=== PATIENT | female | born 2000 | race Caucasian/White ===

== ENCOUNTER 2023-12-15 20:16 | Emergency (ER) | payer MEDICAID, SELFPAY ==
--- NOTE | ~2023-12-15 | US_ITS ---
Pelvic ultrasound. Clinical History: Pelvic pain, bleeding, first trimester Technique: Realtime transabdominal scanning of the pelvis was performed. Color flow Doppler and Doppl er spectral analysis were performed. Findings: The uterus is anteverted. The endometrial stripe has a thickness of 15 mm. No intrauterine gestational sac is identified. The right ovary measures 2.9 x 2.0 x 2.4 cm. No significant right ovarian or adnexal mass is seen. The left ovary measures 2.5 x 1.9 x 2.2 cm. No significant left ovarian or adnexal mass is seen. Vascular flow present in both ovaries. There is no evidence of free fluid in the cul de sac. Impression: No intrauterine gestational sac. Prominent endometrial stripe could reflect sequelae of spontaneous a bortion. No definite evidence for retained product of conception. Reviewed, dictated and finalized at [facility]. Impression: No intrauterine gestational sac. Prominent endometrial stripe could reflect seq uelae of spontaneous . No definite evidence for retained product of con ception.
[2023-12-15 20:20] VITALS: BP 115/64; PULSE 75; RESP 18; TEMP 36.6; O2SAT 97
--- NOTE | 2023-12-16 02:40 | ED.FEMALEGU ---
HPI - Female Genitourinary General Chief complaint: Vaginal Bleeding Stated complaint: 9 weeks preg, Vaginal bleeding Time Seen by Provider: 12/16/23 02:25 History of Present Illness HPI Narrative: This is a 23-year-old female who presents to the emergency department a chief complaint of vaginal spotting and vaginal bleeding. She has been spotting for several days and then passing some blood clots today prompting her to seek evaluation. She is approximately 9 weeks by last menstrual cycle. She states she had a positive test at home but has not established with an OBGYN here as she just moved to the area. She has an appointment in 1 week time. Not sure who her OBGYN name is. She doses of pelvic cramping sensation associated with the bleeding. I think she is having a miscarriage. Denies any fever, chills, nausea, vomiting, chest pain, shortness a breath. No complications were prior . Has a [id number] child at home, healthy. Denies any trauma or other illnesses, recent injuries. Related Data Allergies Allergy/AdvReac Type Severity Reaction Status Date / Time No Known Allergies Allergy Verified 12/16/23 02:55 Review of Systems Review of Systems: As reviewed above Exam Narrative: GENERAL: [Well-appearing, well-nourished, and in no acute distress.] HEAD: [Normocephalic, atraumatic.] EYES: [PERRLA and EOMI.] ENT: Nares clear, no rhinorrhea or epistaxis. Mucous membranes moist. NECK: Supple. CHEST: [Clear to auscultation. No respiratory distress.] HEART: [Regular rate and rhythm]. No murmur heard. [Normal peripheral pulses.] ABDOMEN: [Soft, nondistended], tender to palpation bilateral lower quadrants, non peritoneal, [No rigidity or guarding] EXTREMITIES: Normal range of motion. [No edema.] SKIN: Warm, dry, no rash. NEURO: [No focal deficits]. Alert and oriented [x3.] PSYCH: [Normal mood and affect.] Course Vital Signs Vital signs: Vital Signs Temperature 36.6 C 12/15/23 20:20 Pulse Rate 75 12/15/23 20:20 Respiratory Rate 18 12/15/23 20:20 Blood Pressure 115/64 12/15/23 20:20 Pulse Oximetry 97 12/15/23 20:20 Oxygen Delivery Room Air 12/15/23 20:20 Temperature 36.6 C 12/15/23 20:20 Pulse Rate 75 12/16/23 03:40 Respiratory Rate 18 12/16/23 03:40 Blood Pressure 105/67 12/16/23 03:40 Pulse Oximetry 99 12/16/23 03:40 Oxygen Delivery Room Air 12/15/23 20:20 MDM - Female Genitourinary MDM Narrative Medical decision making narrative: 23-year-old female with vaginal bleeding in the setting of possible . She has a history of uncomplicated rates before but no abdominal surgical history. Normal reassuring vital signs. Examination shows some tenderness in bilateral abdominal quadrants but no signs of rebound guarding or peritonitis. She has been passing some small blood clots for last few hours and had spotting over last few days. Concerned she is having a miscarriage. . Differential diagnosis at this time includes miscarriage, normal vaginal bleeding in , ectopic , less likely ovarian pathology such as ovarian cyst or hemorrhagic cyst. Workup was ordered including CBC, CMP, type and screen, ultrasound, beta hCG. She is given Tylenol for analgesia. Prior to obtaining her ultrasound I was called to patient's bedside as she had passed complete material encased in a embryonic sac. He has identifiable tissue was seen and appears complete without any rupture the sac or likely retained membranes. Pelvic ultrasound was deferred by patient by transabdominal ultrasound showed no identifiable retained gestational or yolk sac consistent with a complete miscarriage given her passing of the material here at bedside. Embryo placed into a specimen collection. Laboratory studies show a stable hemoglobin of 13.6, no leukocytosis. Electrolyte panel within normal limits, normal creatinine. Normal hepatic function pa
[2023-12-16 02:55] LABS: Basophils Percent Auto 0.5 % (0.2-1.2); Eosinophils Absolute Auto 0.2 K/mm3 (0-0.3); Eosinophils Percent Auto 1.9 % (0-4.4); Hematocrit 40.3 % (37.0-47.0); Hemoglobin 13.6 g/dL (12.0-15.0); Immature Granulocyte Absolute 0.01 K/mm3 (0.00-0.031); Immature Granulocyte Percent A 0.1 % (0-0.5); Lymphocytes Absolute Auto 2.07 K/mm3 (0.9-3.2); Mean Corpuscular HGB Conc 33.7 g/dl (32-36); Mean Corpuscular Hemoglobin 30.1 pg (26-34); Mean Corpuscular Volume 89.2 fl (80-100); Mean Platelet Volume 9.3 fl (7.4-10.4); Monocytes Absolute Auto 0.5 K/mm3 (0.1-0.6); Monocytes Percent Auto 5.6 % (2.6-8.5); Neutrophils Absolute Auto 5.9 K/mm3 (1.3-6.7); Neutrophils Percent Auto 67.9 % (45.5-73.1); Platelet Count Result 245 k/mm3 (150-375); Red Blood Count 4.52 M/mm3 (4.2-5.4); Red Cell Distribution Width 12.8 % (11.5-14.5); White Blood Count 8.6 K/mm3 (4.5-10.0)
[2023-12-16 03:08] LABS: INR 1.1; Prothrombin Time 14.2 Seconds (11.1-14.7)
[2023-12-16 03:08] LABS: Alanine Aminotransferase 14 U/L (6-35); Albumin Level 4.6 g/dL (3.5-5.1); Alkaline Phosphatase 68 U/L (38-126); Anion Gap 12 mmol/L (4-12); Aspartate Amino Transferase 20 U/L (14-36); Bilirubin,Total 0.4 mg/dL (0.2-1.3); Blood Urea Nitrogen 11 mg/dL (7-17); Calcium 9.3 mg/dL (8.4-10.2); Carbon Dioxide 24 mmol/L (22-30); Chloride 102 mmol/L (98-107); Estimated CRCL calculation 114 ml/min; Estimated Glomerular Filt Rate > 60; Glucose 93 mg/dL (65-110); Potassium 3.6 mmol/L (3.4-5.0); Sodium 138 mmol/L (137-145)
[2023-12-16 03:09] LABS: Partial Thromboplastin Time 29.9 Seconds (22.3-36.8)
--- NOTE | 2023-12-16 03:15 | PC.NURSE ---
Pt stated I do not want a vaginal ultrasound nor do I want a pelvic exam.
--- NOTE | 2023-12-16 03:17 | PC.NURSE ---
Pt significant other called for help to room 9. Upon arrival, pt stated I think I just passed my child or a very large clot. simone Araiza, placed clot in urine cup to show Dr. Crow. EDP notified.
[2023-12-16] MEDS: ACETAMINOPHEN 500 MG TABLET 1000 MG PO (03:37)
[2023-12-16 03:40] VITALS: BP 105/67; PULSE 75; RESP 18; O2SAT 99
--- NOTE | 2023-12-16 04:30 | PC.NURSE ---
Patient left prior to receiving dc paperwork or share paperwork. Product of conception sent to lab per JANET Crow.
--- NOTE | 2023-12-16 04:41 | PC.NURSE ---
Pt left prior to receiving discharge papers. IV was removed beforehand by DEBORAH Bullard
== END 2023-12-16 04:30 | disposition home or self-care (01) ==
PROVIDERS: Emergency Medicine; Emergency Provider Student in an Organized Health Care Education/Training Program
DX: O03.9 Complete or unspecified spontaneous abortion without complication (principal)
CPT/HCPCS: 36415; 76856; 80053; 84702; 85025; 85461; 85610; 85730; 86850; 86900; 86901; 88305; 99284; A9270

== ENCOUNTER 2024-09-16 11:43 | Outpatient (CLI) | payer OTHER, SELFPAY ==
--- NOTE | ~2024-09-16 | XR_ITS ---
EXAMINATION: SACRUM/COCCYX DATE: 09/16/2024 12:31 INDICATION: Trauma to the tailbone. Pain. TECHNIQUE: Three views sacrum/coccyx FINDINGS: No prior studies for comparison. There is no displaced fracture of the sacrum. The coccyx demonstrates overall normal morphology with out acute angulation. IMPRESSION: 1. No acute displaced osseous abnormality of the sacrum. Suspicion for occult or nondisplaced sacral fracture can either be evaluated with CT or MRI. 2. Grossly normal morphology to the coccyx without acute angulation. However, due to the wide range of normal variation of the coccyx, acute injury would be best evaluated by clinical examination and patient's symptoms. Reviewed, dictated and finalized at location B.
--- OUTSIDE RECORDS SUMMARY | 2024-09-16 11:53 | XMS_ITS | Patient Health Record ---
Author Organization [facility] Address [address] [place], [place] [id number] Care Team Providers Care Carpenter/Labor Name Role Phone Milan Aguila [phone] Reason For Referral No Information Medications Medication SIG (Take, Route, Fr equency, Duration) Notes Start Date End Date Status Control Active Ketorolac Tromethamine Active Social History Tobacco Use: Social History Observation Description Date Details (start date - stop date) Never Smoker NA - NA Tobacco Use/Smoking Question Answer Notes Are you a nonsmoker Alcohol Screen (Audit-C) Question Answer Notes Did you have a drink containing alcohol in the p ast year? No Points 0 Interpretation Negative Problems Problem Type SNOMED Code ICD Code Onset Dates Problem Status W/U Status Risk Notes Problem Laceration of head without foreign body (424956039) Laceration without foreign body of other part of head, initial encounter (S01.81XA) Active confirmed Plan Of Treatment No Information Medical (General) History Surgical History Surgery Date(Month/Year) forehead laceration repair (10) 7
--- OUTSIDE RECORDS SUMMARY | 2024-09-16 11:53 | XMS_ITS | Data Portability ---
Author Organization [facility] Address [address] [place] [address] Assessment No assessment recorded. Plan of Treatment Reminders Order Date Submit Date Provider Last Modified By Organization Details Last Modified Time Details Appointments None recorded. Lab beta-HCG, quantitativ e, serum or plasma 2023 [facility], [address] [place], [address], 4 15:55:38 abo group + rh type, blood 2023 [facility], [address] [place], [address], 4 15:55:39 Referral None recorded. Procedures None recorded. Surgeries None recorded. Imaging US, transvagina l 2023 [facility] Not available 16:59:42 Medication Orders NuvaRing 0.12 mg-0.015 mg/24 hr vaginal 2023 [facility] [address] , [place], [address], 4 12:46:00 clindamycin 1.2 %-benzoyl peroxide 2.5 % topical gel with pump 2023 [facility] [address] , [place], [address], 4 12:45:59 Patient TargetsNo targets recorded. Patient InstructionsNo instructions recorded. Reason for Referral None Reported. Results Created Date Observation Date Name Description Value Unit Range Abnormal Flag Note LastModifiedBy Organization Detail LastModifiedTime 12/24/19 24 12/25/2023 HCG, TOTAL , QN HCG, total, qn 175 mIU/m L high Refer ence Range Nonpr egnan t or preme nopau laurel <5 Postm enopa usal <10 Value s from diffe rent assay metho ds may vary. The use of this assay to monit or or to diagn ose patie nts with cance r or any condi tion unrel ated to pregn nyasia has not been clear ed or appro rome by the FDA or the [facility] actur er of the assay . Not Available Schedule [facility] [address], [address], 12/25/2023 15:55:38 12/24/19 24 12/25/2023 ABO GROUP AND RH TYPE ABO group A Not Available Schedule [facility] [address], [address], 12/25/2023 15:55:39 12/24/19 24 12/25/2023 ABO GROUP AND RH TYPE Rh type RH(D) POSITI VE For addit ional infor lane webb e refer to http: //[facility] matt.Que stDia gnost ics.c om/fa q/FAQ 111 (This link is being provi ded for infor raghu frederick/ educrobbie messina l purpo ses only. ) Not Available Schedule [facility] [address], [address], 12/25/2023 15:55:39 12/31/19 24 01/01/2024 HCG, TOTAL , QUANT HCG, total, quant 12 mIU/m L <5 high Refer ence Range s are for femal es aged 18 years - Adult Nonpr egnan t or preme nopau laurel <5 Postm enopa usal <10 Value s from diffe rent assay metho ds may vary. The use of this assay to monit or or to diagn ose patie nts with cance r or any other condi tion unrel ated to pregn nyasia has not been valid ated by the [facility] actur er of this assay . Not Available [place] [facility] [address] [facility], [place], [address], 01/01/2024 11:45:22 12/23/19 24 12/23/2023 US, trans vagin al No observ ation record ed. [email or web address], [place], [address], 12/23/2023 20:09:47 Result Notes None recorded. Procedures Surgical History Date Name Laterality Status Provider Name and Address Organization Details Recorded Time 01/18/2023 Date of Last Pap Smear completed Daylin Newman RPM [employer] 12/23/2023 11:21:37 Imaging Results None recorded. Procedure Notes None recorded. Medical Equipment None Reported. Allergies No known drug allergies Medications Name Sig Start Date Stop Date Status Note LastModified by Organization Details LastModified Time clindamycin 1 % topical gel APPLY A THIN LAYER TO THE AFFECTED AREA TOPICALLY 2 TIMES PER DAY active Not Available Not Available No t Available hydroxyzine HCl 25 mg tablet TAKE 1 TABLET BY MOUTH THREE TIMES DAILY active Not Available Not Available No t Available NuvaRing 0.12 mg-0.015 mg/24 hr vaginal Insert 1 vaginal ring every month by vaginal route for 21 days. 2023 active Not Available Not Available Not Avai lable clindamycin 1.2 %-benzoyl peroxide 2.5 % topical gel with pump APPLY A PEA-SIZED AMOUNT TOPICALLY ONCE DAILY TO COVER AREAS OF FACE WITH THIN LAYER active Not Available Not Available N ot Available Vitals Date Recorded Body height Body mass index (BMI) Body weight Systolic blood pressure Diastolic blood pressure Provider Name and Address Organization Details Last Updated DateTime 12/23/2023 157.48 cm 23.3 kg/m2 36017.67 g 110 mm[Hg] 66 mm[Hg] Daylin Newman [employer] 11:19:43 Social History Question Answer Notes LastModified by Organizat ion Details LastModified Time Tobacco Smoking Status Never Smoker Daylin rudd [employer] 12/23/2023 11:21:37 If You Are , What Was Your Level Of Alcohol Consumption Prior To ? Occasional [email or web address] Information not available 12/23/2023 How Many Years Have You Consumed Alcohol? 3 [email or web address] Information not available 12/23/2023 Are You Blind Or Do You Have Difficulty Seeing? No Information not available 12/23/2023 Are You Deaf Or Do You Have Serious Difficulty Hearing? No [email or web address] Information not available 12/23/2023 What Type Of Diet Are You Following? REGULAR [email or web address] Information not available 12/23/2023 Which Illicit Or Recreational Drugs Have You Used? Marijuana [email or web address] Information not available 12/23/2023 How Many Children Do You Have? 1 [email or web address] Information not available 12/23/2023 What Is Your Relationship Status? [email or web address] Information not available 12/23/2023 Are You Sexually Active? Yes [email or web address] Information not available 12/23/2023 Sex: Unknown Functional Status Question Answer Note LastModified by Organizat ion Details LastModified Time Do you use any illicit or recreational drugs? Yes [email or web address] Information not available 12/23/2023 What is your level of alcohol consumption? Occasional [email or web address] Information not available 12/23/2023 Are you currently employed? No Information not available 12/23/2023 What is your exercise level? Occasional [email or web address] Information not available 12/23/2023 Mental Status None recorded. Family History Relationship Description Onset Age of this Age Resolved Age Notes LastModified by Organization Details LastModified Time Mother Irritable bowel syndrome [email or web address] Not available 12/22 11:21:36 Mother Endometriosi s (clinical) [email or web address] Not available 11:21:36 Mother Malignant tumor of breast [email or web address] Not available 12/22 11:21:36 Mother Malignant neoplastic disease [email or web address] Not available 12/22 11:21:36 Mother Hypertensive disorder [email or web address] Not available 12/22 11:21:36 Mother Uterine leiomyoma Not available 12/22 11:21:36 Maternal Grandmother Diabetes mellitus [email or web address] Not available 12/22 11:21:36 Father Irritable bowel syndrome [email or web address] Not available 12/22 11:21:36 Father Depressive disorder [email or web address] Not available 12/22 11:21:36 Father Gastric ulcer [email or web address] Not available 12/22 11:21:36 Medical History Condition Response Headaches/migraines Y Depression Y Panic Attacks Y Gynecological History Statement/Question Response Flow Moderate Date of LMP 10/05/2023 Frequency of Cycle (Q days) 31 Date of Last Pap Smear 01/18/2023 Duration of Flow (days) 4-5 Current Control Method None Age at Menarche 10 Obstetrics History GPAL:G 2 P 1 0 0 1 Type Value Full Term 1 Spontaneous 0 Living 1 Total 2 Past Encounters Encounter ID Performer Location Encounter Start Date Encounter Closed Date Diagnosis/Indication Diagnosis SNOMED-CT Code Diagnosis ICD10 Code Diagnosis Note [id number] Yamile Miles CNM [facility] [address] [place] [address] 12/23/2023 11:08:55 12/23/2023 13:36:03 Complete miscarriage [id number] O03.9 Pt was seen at [place] [facility] last week for complete miscarriag e. She states that tissue appeared complete and she is no longer bleeding. Will check US to assure no retained products and follow quants. Pt coping ok but would like to have referral to mental health counselor since she is struggelin g with emotions at the moment. Will send referralI spent 30 minutes with the patient, greater than 50% of the time was spent face to face in discussion with the patient the remainder of the time was spent in chart prep and data review. Mental health problem 41 [id number] F48.9 Prescripti on of contraception [id number] Z30.015 COUNSELING was provided today regarding the following: - CHC use was discussed with the patient in detail including starting CHC risks, benefits, side effects, and ACHES. - Backup contracept ion x 2 weeks after start - Condoms should be used for STI prevention . 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 .0 Health Concerns Section Related Observation LastModified by Organization Detai ls LastModified Time None Recorded Concern Status LastModified by Organization Details LastModified Time None Recorded Advance Directives Directive None Recorded Payers Insurance Date Sequence Insurance Name Policy Number Policy Ang Covered Member ID Ang Member ID Guarantor Name 12/24/2023 1 [place] [employer] [facility] [employer] Yamilet Chacon [id number] Yamilet Chacon Notes Date Note Type Note Provider Name and Address Organization Details Recorded Time 12/23/2023 text/html Yamilet Hicks y/o new patient here with misscarriage, seen at [place] [facility] on 12/15/2023, LMP 10/05/2023, Yamile Miles, CN [address] [place], [address], [facility] 12/23/2023 13:35:57 OBGyn Episode Ob Episode Information Episode Created Date Number of Fetuses Patient Bloodtype Patient rh Status Prepregnancy Weight lbs Domestic Partner Domestic Partner Phone Father Name Commercial Real Estate Associate Status 12/23/19 24 1 CLOSED Fetus Data First Name Last Name Admitted to NICU Weight (g) Sex Living Outcome Pediatric Complications Fetus ID Race Codes Race Delivery Type 3061.74 6 M Full Term [id number] Dilshad Calculation Initial Dilshad Date Initial Exam Date Initial Exam Provider Initial Ultrasound Date Last Menstrual Period Date Ultra Sound Weeks Gestation 0 Eighteen To Twenty Week Dilshad Update Ultra Sound Date Fundal Height At Umbil Quickening Date Ultra Sound Latest Weeks Gestation Final Dilshad Confirmed By Final Dilshad Confirmed Date Final Dilshad Date Ultra Sound Latest Days Gestation 0 0 Menstrual History Last Menstrual Date Menses Monthly On Bcp Conception Prior Menses Frequency Hcg Plus Date Menarche Onset Age Delivery Information Delivery Date Delivery Type Labor Anesthesia Weeks Gestation Incision Type Labor Labor Length Hrs Delivered By Post Complications Tubal Sterilization Discharge Date Comments 3 38 Discharge Information Feeding Method Contraceptive Method Maternal HG B and HCT Levels
--- OUTSIDE RECORDS SUMMARY | 2024-09-16 11:54 | XMS_ITS | Data Portability ---
Author Organization [facility] [employer]so [employer], [id number](CLOSED) Address [address] [place] [address] Care Team Providers Care Licensed Midwife Name Role Phone ARMIN BENZNam Primary Care Provider Assessment No assessment recorded. Plan of Treatment Reminders Order Date Submit Date Provider Last Modified By Organization Details Last Modified Time Details Appointments None recorded. Lab urinalysis, dipstick 2018 019 In-House Results, For Internal Use Only, Do Not Delete/merge, [id number] 9 15:47:43 culture, urine 2018 019 [facility], [address] [place], [address], 9 05:31:24 urinalysis, dipstick 2017 018 In-House Results, For Internal Use Only, Do Not Delete/merge, [id number] 8 10:54:25 test, urine 2017 018 In-House Results, For Internal Use Only, Do Not Delete/merge, [id number] 8 10:54:25 urinalysis, dipstick 2016 017 gramie In-House Results, For Internal Use Only, Do Not Delete/merge, [id number] 7 11:04:31 CBC w/ auto diff [address] [facility], [address], [place], [address], 7 08:22:49 anti-will julisa hormone (amh), serum [address] [facility], [address], [place], [address], 7 08:22:49 erythrocyte sedimentati on rate by westergren method [address] [facility], [address], [place], [address], 7 08:22:49 Referral None recorded. Procedures None recorded. Surgeries None recorded. Imaging US, breast, unilateral - special attn to 9-12:00 L breast 2018 019 [facility], [address], [place], [address], 9 05:03:28 Medication Orders phenazopyri dine 200 mg tablet 2018 019 [id number] [id number], [address], [address], 9 10:21:21 medroxyprog esterone 150 mg/mL intramuscul ar syringe 2017 018 [id number] [place], [address], [place], [address], 8 16:52:40 Microgestin 1.5/30 (21) 1.5 mg-30 mcg tablet 2017 018 [id number], [address] [place] [address], [address], 8 10:53:55 NuvaRing 0.12 mg-0.015 mg/24 hr vaginal 2016 017 [id number] [id number], [address] , [place], [address], 9 10:30:49 Patient TargetsNo targets recorded. Patient Instructions Encounter Date Encounter Id Patient Instructions Last Modified By Organization Details Last Modified Time 02/13/2017 [id number] Discussed option s and will try to go on NuvaRing. Will check AMH. janna Not available 02/15/2017 19:22:22 She gas a strong family hx of endometriosis. We discussed emperic treatment with continuos contraceptives. We discussed other medical treatments as well. If no relief will consider RA laparoscpy with excision of Endometriosis. janna Not available 02/15/2017 19:23:37 06/11/2017 [id number] Change ocp with next pill pack. Suspect endometriosis - if sx do not improve or get worse she is to notify the office for further eval. She verblaizes understanding. F/U 3 months or sooner if needed Not available 06/19/2017 18:09:01 02/16/2018 [id number] learning about control: the shot Not available 02/16/2018 11:00:50 endometriosis: care instructions Not available 02/16/2018 11:00:50 Change from ocp to depo as directed- depo calender provided with instructions for use F/U if sx do not improve for further eval Not available 02/16/2018 11:00:12 06/04/2018 [id number] Send urine for C &S Start pyridum for painful urination - continue antibiotics If continued BTB can take depo early if needed F/U if continues Not available 06/13/2018 22:14:40 09/15/2018 [id number] Reassurance offerred Request breast u/s of left breast due to family hx and concerns Not available 09/15/2018 10:59:28 Reason for Referral None Reported. Results Created Date Observation Date Name Description Value Unit Range Abnormal Flag Note LastModifiedBy Organization Detail LastModifiedTime 02/14/20 17 02/13/2017 urina lysis , dipst ick Unknown Analyte Negati ve Not Available In-House Results For Internal Use Only, Do Not Delete/merge, 02/13/2017 10:01:35 02/14/20 17 02/13/2017 urina lysis , dipst ick Unknown Analyte Negati ve Not Available In-House Results For Internal Use Only, Do Not Delete/merge, 02/13/2017 10:01:35 02/14/20 17 02/13/2017 urina lysis , dipst ick Unknown Analyte Trace Not Available In-Nitza se Results For Internal Use Only, Do Not Delete/merge, 02/13/2017 10:01:35 02/14/20 17 02/13/2017 urina lysis , dipst ick Unknown Analyte 30 Not Available In-Nitza se Results For Internal Use Only, Do Not Delete/merge, 02/13/2017 10:01:35 02/14/20 17 02/13/2017 urina lysis , dipst ick Unknown Analyte negati ve Not Available In-House Results For Internal Use Only, Do Not Delete/merge, 02/13/2017 10:01:35 02/14/20 17 02/13/2017 urina lysis , dipst ick Unknown Analyte Small Not Available In-Nitza se Results For Internal Use Only, Do Not Delete/merge, 02/13/2017 10:01:35 02/17/20 18 02/16/2018 pregn nyasia test, urine Unknown Analyte negati ve Not Available In-House Results For Internal Use Only, Do Not Delete/merge, 02/16/2018 10:43:37 02/17/20 18 02/16/2018 urina lysis , dipst ick Unknown Analyte Negati ve Not Available In-House Results For Internal Use Only, Do Not Delete/merge, 02/16/2018 10:10:23 02/17/20 18 02/16/2018 urina lysis , dipst ick Unknown Analyte Negati ve Not Available In-House Results For Internal Use Only, Do Not Delete/merge, 02/16/2018 10:10:23 02/17/20 18 02/16/2018 urina lysis , dipst ick Unknown Analyte Trace Not Available In-Nitza se Results For Internal Use Only, Do Not Delete/merge, 02/16/2018 10:10:23 02/17/20 18 02/16/2018 urina lysis , dipst ick Unknown Analyte Trace Not Available In-Nitaz se Results For Internal Use Only, Do Not Delete/merge, 02/16/2018 10:10:23 02/17/20 18 02/16/2018 urina lysis , dipst ick Unknown Analyte negati ve Not Available In-House Results For Internal Use Only, Do Not Delete/merge, 02/16/2018 10:10:23 02/17/20 18 02/16/2018 urina lysis , dipst ick Unknown Analyte Negati ve Not Available In-House Results For Internal Use Only, Do Not Delete/merge, 02/16/2018 10:10:23 06/05/19 19 06/06/2018 cultu re, urine culture, urine, routine SEE NOTE CULTU RE, URINE , ROUTI NE MICRO NUMBE R: [id number] TEST STATU S: FINAL SPECI MEN SOURC E: URINE SPECI MEN QUALI TY: ADEQU ATE RESUL T: No Growt h Not Available [facility] [address], [place], [address], 06/06/2018 05:31:24 06/05/19 19 06/04/2018 urina lysis , dipst ick Unknown Analyte Negati ve Not Available In-House Results For Internal Use Only, Do Not Delete/merge, 06/04/2018 14:31:35 06/05/19 19 06/04/2018 urina lysis , dipst ick Unknown Analyte Not Available In-Nitza se Results For Internal Use Only, Do Not Delete/merge, 06/04/2018 14:31:35 06/05/19 19 06/04/2018 urina lysis , dipst ick Unknown Analyte Negati ve Not Available In-House Results For Internal Use Only, Do Not Delete/merge, 06/04/2018 14:31:35 06/05/19 19 06/04/2018 urina lysis , dipst ick Unknown Analyte Trace Not Available In-Nitza se Results For Internal Use Only, Do Not Delete/merge, 06/04/2018 14:31:35 06/05/19 19 06/04/2018 urina lysis , dipst ick Unknown Analyte Negati ve Not Available In-House Results For Internal Use Only, Do Not Delete/merge, 06/04/2018 14:31:35 06/05/19 19 06/04/2018 urina lysis , dipst ick Unknown Analyte negati ve Not Available In-House Results For Internal Use Only, Do Not Delete/merge, 06/04/2018 14:31:35 06/05/1906/04/2018 urina lysis , dipst ick Unknown Analyte Small Not Available In-Nitza se Results For Internal Use Only, Do Not Delete/merge, 06/04/2018 14:31:35 Result Notes None recorded. Medical Equipment None Reported. Allergies No known drug allergies Medications Name Sig Start Date Stop Date Status Note LastModified by Organization Details LastModified Time amoxicillin 500 mg capsule TAKE ONE CAPSULE BY MOUTH TWICE A DAY 08/21 completed Not Available Not Available Not Available hydrocodone 5 mg-acetamin ophen 325 mg tablet TAKE 1 TABLET BY MOUTH EVERY 6 HOURS NEEDED 02/13 completed Not Available Not Available Not Available phenazopyri dine 200 mg tablet TAKE 1 TABLET BY MOUTH THREE TIMES A DAY FOR 3 DAYS 09/15 completed Not Available Not Available Not Available ketorolac 10 mg tablet TK 1 T PO Q 6-8 H PRN FOR PAIN 02/13 completed Not Available Not Available Not Available amoxicillin 875 mg tablet TAKE 1 TABLET BY MOUTH TWICE A DAY 02/16 completed Not Available Not Available Not Available hydrocodone 7.5 mg-acetamin ophen 325 mg tablet TAKE 1 TABLET BY MOUTH EVERY 4 TO 6 HOURS NEEDED 09/15 completed Not Available Not Available Not Available cephalexin 500 mg capsule TAKE 1 CAPSULE BY MOUTH FOUR TIMES DAILY FOR 7 DAYS 02/13 completed Not Available Not Available Not Available promethazin e 25 mg tablet TAKE 1 TABLET BY MOUTH EVERY 6 HOURS NEEDED FOR NAUSEA/VO MITING 09/15 completed Not Available Not Available Not Available norgestimat e-ethinyl estradiol 0.18mg/0.21 5mg/0.25mg- 0.035mg(28) tablet 09/15 completed Not Available Not Available Not Available cefdinir 300 mg capsule TAKE ONE CAPSULE BY MOUTH EVERY 12 HOURS UNTIL GONE 09/15 completed Not Available Not Available Not Available Ventolin HFA 90 mcg/actuati on aerosol inhaler INHALE 1 PUFF BY MOUTH FOUR TIMES DAILY 09/15 completed Not Available Not Available Not Available NuvaRing 0.12 mg-0.015 mg/24 hr vaginal Insert 1 vaginal ring every month by vaginal route. 09/15 completed Not Available Not Available Not Available medroxyprog esterone 150 mg/mL intramuscul ar syringe INJECT 1 ML EVERY 3 MONTHS INTRAMUSC ULARLY active Not Available Not Available No t Available escitalopra m 10 mg tablet TAKE 1/2 TABLET BY MOUTH ONCE DAILY 09/15 completed Not Available Not Available Not Available escitalopra m 20 mg tablet TAKE 1 TABLET BY MOUTH EVERY DAY active Not Available Not Available No t Available Microgestin 1.5/30 (21) 1.5 mg-30 mcg tablet TAKE 1 TABLET BY MOUTH EVERY DAY active Not Available Not Available No t Available nitrofurant oin monohydrate /macrocryst als 100 mg capsule TAKE ONE CAPSULE BY MOUTH TWICE A DAY FOR 7 DAYS 09/15 completed Not Available Not Available Not Available Lo Loestrin Fe 1 mg-10 mcg (24)/10 mcg (2) tablet TAKE 1 TABLET BY MOUTH EVERY DAY DIRECTED 02/13 completed Not Available Not Available Not Available Vitals Date Recorded Body height Body mass index (BMI) [Percentile] Per age and sex Body mass index (BMI) Body weight Systolic blood pressure Diastolic blood pressure Provider Name and Address Organization Details Last Updated DateTime 9 157.48 cm 7 % 17.9 kg/m2 83074.0 5 g 122 mm[Hg] 66 mm[Hg] Tonie Vergara (TERMED) [facility] [employer] 9 14:36:47 Date Recorded Body height Body mass index (BMI) Body weight Systolic blood pressure Diastolic blood pressure Provider Name and Address Organization Details Last Updated DateTime 06/11/2017 157.48 cm 18.8 kg/m2 26372.01 g 102 mm[Hg] 64 mm[Hg] Yuki Vergara (TERMED) [facility] [employer] [facility] 8 09:19:13 Date Recorded Body height Body mass index (BMI) Body mass index (BMI) [Percentile] Per age and sex Body weight Systolic blood pressure Diastolic blood pressure Provider Name and Address Organization Details Last Updated DateTime 9 157.48 cm 18.3 kg/m2 9 % 02514.2 4 g 102 mm[Hg] 68 mm[Hg] Marlyn Mcclure (TERMED) [facility] [employer] [facility] 9 10:30:35 Date Recorded Body height Body mass index (BMI) Body weight Systolic blood pressure Diastolic blood pressure Provider Name and Address Organization Details Last Updated DateTime 02/13/2017 157.48 cm 18.3 kg/m2 56800.24 g 92 mm[Hg] 74 mm[Hg] Tere Burger (TERMED) [facility] [employer] [facility] 7 10:26:57 Date Recorded Body height Body mass index (BMI) Body weight Systolic blood pressure Diastolic blood pressure Provider Name and Address Organization Details Last Updated DateTime 02/16/2018 157.48 cm 19.4 kg/m2 77473.79 g 98 mm[Hg] 62 mm[Hg] Marlyn Mcclure (TERMED) [facility] 8 10:40:06 Social History Question Answer Notes LastModified by Organizat ion Details LastModified Time Tobacco Smoking Status Never Smoker Zahra rudd, [facility] 05/15/2016 15:40:58 Is Blood Transfusion Acceptable In An Emergency? Yes Information not available 05/15/2016 What Is Your Level Of Caffeine Consumption? Occasional Information not available 05/15/2016 What Type Of Diet Are You Following? REGULAR Information not available 05/15/2016 Education 11 Information no t available 02/13/2017 Illicit Drugs? No Informatio n not available 05/15/2016 History Of Domestic Violence No Information not available 05/15/2016 Adventism RELIGIOUS Information no t available 05/15/2016 Marital Status Single Informatio n not available 05/15/2016 What Was The Date Of Your Most Recent Tobacco Screening? 09/15/2018 Information not available 10/28/2018 Seat Belts Used Routinely Yes Information not available 05/15/2016 How Much Tobacco Do You Smoke? No Information not available 02/13/2017 How Many Years Have You Smoked Tobacco? 0 Information not available 02/13/2017 Do You Have Symptoms Associated With Zika Virus (fever, Rash, Joint Pain, Or Conjunctivitis)? No Information not available 02/13/2017 Have You Recently (within The Last 12 Weeks, Or During A Current ) Traveled To Or Lived In A Zika-affected Area? No Information not available 02/13/2017 Sex: Unknown Functional Status Question Answer Note LastModified by Organizat ion Details LastModified Time What is your level of alcohol consumption? None Information not available 02/13/2017 Urinary incontinence assessment performed? No Information not available 02/13/2017 What is your exercise level? Occasional Information not available 02/13/2017 Mental Status None recorded. Family History Relationship Description Onset Age of this Age Resolved Age Notes LastModified by Organization Details LastModified Time Mother Malignant tumor of breast Triple Neg/De ceased [email or web address] Not available 09/15/2018 10:28:37 Mother Endometriosi s oschmidt Not available 2018 14:22:43 Mother Cerebrovascu lar accident oschmidt Not available 04/2018 14:22:43 Mother Disorder of thyroid gland oschmidt Not available 2018 14:22:43 Father Bipolar disorder oschmidt Not available 2018 14:22:43 Father Addiction oschmidt Not availabl e 06/04/2018 14:22:43 Maternal Grandmother Diabetes mellitus oschmidt Not available 2018 14:22:43 Maternal Grandmother Hypertensive disorder oschmidt Not available 2018 14:22:43 Maternal Uncle Diabetes mellitus oschmidt Not available 2018 14:22:43 Maternal Grandfather Family history unknown oschmidt Not available 2018 14:22:43 Medical History Condition Response GI- Hemorrhoids N Neurology-Other N Hematology-Blood Clotting Disorder/Facto r V Leiden N Neurology- Stroke/TIA N Dermatology-Acne Y Endocrinology-Other N Endocrinology- Osteoporosis N Psych- Depression N Hematology-Other N Hematology-Anemia N Ortho-Chronic Back Pain N Dermatology-Other N Dermatology-Eczema/Psoriasis N Rheumatology-Autoimmune Disease N Cardiology- High Cholesterol N Cancer- Ovary N Cardiology- Heart Arrhythmia N Psych-other N Hematology-DVT/Pulmonary Embolism N Neurology- Seizures/Epilepsy N Cancer- Breast N Psych- ADD N Ortho-Fractures N GI- Liver Disease/Hepatitis N Weight Management/Obesity N Psych- PMS/PMDD N Pulmonary-Other N Cancer- Colon N ENT- Hearing Loss N Cancer- Vulvar N Psych- Anxiety Disorder Y Cancer- Vaginal N GI-Other N GI- Reflux/Ulcers N Rheumatology-Arthritis N Neurology- Headaches/Migraines N Hematology-Bleeding Disorder N Endocrinology- Diabetes N ID-Chicken Pox/Shingles N Cancer- Cervical N Cancer- Skin N Pulmonary- COPD/Emphysema N GI- Irritable Bowel Syndrome N Cardiology- Heart Disease N ID-HIV N GI- Crohn's/Ulcerative Colitis N GI- Colon Polyps N Endocrinology- Osteopenia N Psych- Bipolar Disease N Cardiology- High Blood Pressure N Cancer- Lung N Cancer- Endometrial/Uterine N Eyes- Vision Loss/Macular Degeneration N ENT-Other N ID-Other N Rheumatology-Other N Psych- Eating Disorder N Hematology-Blood Transfusion N Pulmonary- Asthma N Urology- Hematuria (Blood in Urine) N Pulmonary- Sleep Apnea N Neurology- Dementia N Urology- Interstitial Cystitis N Urology- Stones N ID-MRSA N Cancer-Other N GI- Gallbladder Disease N Gynecological History Statement/Question Response Date of Last Mammogram Date of LMP 09/15/2018 HPV Test N/A Age at Menopause n/a Post Menopausal Hormone Use Never Sexual orientation Heterosexual History of Endometriosis N Date of Last Colonoscopy History of Sexually Transmitted Infectio n No History of Infertility N Date of last bone density Never HPV Vaccine Completed History of Recurrent Ovarian Cyst N History of PCOS N History of Fibroids N History of Dysmenorrhea N Age at Menarche 10 History of Cervical Dysplasia N Sexually active Y Current Control Method: Depo Prove ra History of abnormal PAP N Date of Last Pap Smear Obstetrics History GPAL:G 0 P 0 0 0 0 Immunizations Vaccine Type Date Status Note Provider Nam e and Address Organization Details Recorded Time meningococcal MCV4P 5 completed Tonie Vergara (TERMED) [facility] [employer] [facility] 06/04/2018 14:23:32 varicella 3 completed Zahra Saavedra [facility] [employer] [facility] 08/21/2016 16:43:22 HPV, quadrivalent 3 completed Zahraconnor Saavedra [place], [place] - [facility], [facility] 08/21/2016 16:43:22 Past Encounters Encounter ID Performer Location Encounter Start Date Encounter Closed Date Diagnosis/Indication Diagnosis SNOMED-CT Code Diagnosis ICD10 Code Diagnosis Note [id number] Rika Malone APRN [id number] [address] [place] [address] 1 05/15/2016 15:17:20 05/15/2016 16:19:06 Dysmenorrhea 809704104 N94.4 Menorrhagia 399245421 N9 2.0 [id number] Rika Malone APRN [id number] [address] [place] [address] 1 08/21/2016 16:38:30 08/21/2016 17:11:57 Urine test negative 156107696 Z32.02 Dysfunctio nal uterine bleeding 16494957 N93.8 secondary to OCP [id number] Otto Blount DO [id number] [address] [place] [address] 1 02/13/2017 09:45:44 02/13/2017 11:13:56 Endometriosis (clinical) 759486990 N80.9 [id number] Rika Malone APRN [id number] [address] [place] [address] 1 06/11/2017 08:54:36 06/11/2017 09:36:09 Endometriosis (clinical) 894568947 N80.9 Chronic pe lvic pain of female 258988661 R10.2 [id number] Rika Malone APRN [id number] [address] [place] [address] 1 02/16/2018 09:55:36 02/16/2018 10:57:29 test negative 931745232 Z32.02 Endometrio sis (clinical) 820960174 N80.9 Menorrhagia 546173532 N9 2.0 Dysmenorrhea 789169822 N 94.4 [id number] Rika Malone APRN [id number] [address] [place] [address] 1 06/04/2018 14:15:20 06/04/2018 15:08:47 Dysuria 65964436 R30.0 [id number] Rika Malone APRN [id number] [address] [place] [address] 09/15/2018 10:14:01 09/15/2018 11:53:11 Pain of breast 96079680 N64.4 L breast 9-12:00 region Family his tory of neoplasm of breast 096954305 Z84.89 mother early onset 36 Health Concerns Section Related Observation LastModified by Organization Detai ls LastModified Time None Recorded Concern Status LastModified by Organization Details LastModified Time None Recorded Advance Directives Directive None Recorded Payers Insurance Date Sequence Insurance Name Policy Number Policy Ang Covered Member ID Ang Member ID Guarantor Name 09/14/2018 1 [place] [id number] Chu Zayasanderson [id number] Yamilet Chacon 02/16/2018 1 *SELF PAY* [employer] Chacon Notes Date Note Type Note Provider Name and Address Organization Details Recorded Time 02/13/2017 text/html Abdominal/Pelvic Pain ([facility])Reported bypatient.Patient Presents With:pelvic pain Referred By:self * Location:bilateral; sharp * Quality:sharp; throbbing; achy * Severity:moderate * Duration:3 weeks * Timing:Onset: sudden; constant; worse at night * Context:previous episodes with similar symptoms; current contraceptive control: Pills * Associated Signs & Symptoms:lower back pain;thigh pain;vaginal bleeding; PT on ocp's with continuous cycles had dark brown bleeding x 3 days. Otto Blount DO [address], [address], [place], [address], [facility] [employer] 02/15/2017 19:23:51 06/11/2017 text/html Pt has complaint s of chronic pelvic pain typically controlled by ocp's. Currently she is unhappy with her pills due to increased BTB and pelvic pain. She is wanting to try a different pill. Rika Malone APRN [address] [facility], [address], [place], [address], [facility] [employer] [facility] 06/19/2017 18:10:18 02/16/2018 text/html Patient presents to discuss control options. She states, she is still having issues with increased frequency of her menses only stopping for a day or two before starting again. Also complaining of increased pelvic pain. She is wanting to switch from ocp to depo for better management. Rika Malone APRN [address] [facility], [address], [place], [address], [facility] [employer] [facility] 02/16/2018 11:00:54 06/04/2018 text/html Pt presents with c/o abnormal vaginal bleeding and UTI. She states that she has been having dark brown spotting since May 29. She states she only sees spotting in her underwear, but it's not enough to wear a tampon. She is currently on Depo for contraception and her last injection was in April. Pt is currently being treated with antibiotics for UTI. Currently seeing Socorro Landry for UTI. Rika Malone APRN [address] [facility], [address], [place], [address], [facility] [employer] [facility] 06/13/2018 22:15:20 09/15/2018 text/html Patient presents with c/o bilateral nipple pain, she describes redness and irritation, denies discharge. She is currently on depo for contraception. Had bilateral nipple piercing 6 months ago. Rika Malone APRN [address] [facility], [address], [place], [address], [facility] [employer] [facility] 09/15/2018 11:00:07 OBGyn Episode No OBEpisode recorded.
--- OUTSIDE RECORDS SUMMARY | 2024-09-16 11:54 | XMS_ITS | Patient Health Record ---
Author Organization [facility] Address [address] [place] [address] Support Name Relationship Address Phone Yamilet Chacon Guarantor Unknown [phone] Reason For Referral No Information Plan Of Treatment No Information Insurance Providers Payer Name Payer Address Payer Phone Subscriber Number Group Number Insured Name Patient Relationship to Insured Coverage Start Date Coverage End Date [employer] [address] [address] [place], [place] [id number] Yamilet Chacon Self - patient is the insured
--- OUTSIDE RECORDS SUMMARY | 2024-09-16 11:54 | XMS_ITS | Data Portability ---
Author Organization [facility] Address [address] [place] [address] Assessment No assessment recorded. Plan of Treatment Reminders Order Date Submit Date Provider Last Modified By Organization Details Last Modified Time Details Appointments None recorded . Lab CBC w/ auto diff 025 09/09/19 [place] [facility], [address], [place], [address], 09:14:04 CMP, serum or plasma 09/09/19 [place] [facility], [address], [place], [address], 09:14:03 Referral None recorded . Procedures None recorded . Surgeries None recorded . Imaging XR, sacrum + coccyx, 2 or more view [facility] [address], [place], [address], 12:16:04 Medication Orders None recorded . Patient TargetsNo targets recorded. Patient InstructionsNo instructions recorded. Reason for Referral None Reported. Results Created Date Observation Date Name Description Value Unit Range Abnormal Flag Note LastModifiedBy Organization Detail LastModifiedTime 09/09/1909/09/2024 COMP. METAB OLIC PANEL (14) glucose 82 mg/dL 70-99 Not Available [facility] ([facility]) [address], [place], [address], 09/09/2024 09:14:02 06/05/20 25 09/09/2024 COMP. METAB OLIC PANEL (14) BUN 11 mg/dL 6-20 Not Available [facility] ([facility]) [address] [place], [address], 09/09/2024 09:14:02 09/09/19 25 09/09/2024 COMP. METAB OLIC PANEL (14) creatinine 0.69 mg/dL 0.57-1 .00 Not Available [facility] ([facility]) [address], [place], [address], 09/09/2024 09:14:02 09/09/19 25 09/09/2024 COMP. METAB OLIC PANEL (14) eGFR 124 mL/mi n/1.7 3 >59 Not Available [facility] ([facility]) [address], [place], [address], 09/09/2024 09:14:02 09/09/19 25 09/09/2024 COMP. METAB OLIC PANEL (14) BUN/creatini ne ratio 16 9-23 Not Available [facility] ([facility]) [address], [place], [address], 09/09/2024 09:14:02 09/09/19 25 09/09/2024 COMP. METAB OLIC PANEL (14) sodium 140 mmol/ L 134-14 4 Not Available [facility] ([facility]) [address] [place], [address], 09/09/2024 09:14:02 09/09/19 25 09/09/2024 COMP. METAB OLIC PANEL (14) potassium 4.1 mmol/ L 3.5-5. 2 Not Available [facility] ([facility]) [address], [place], [address], 09/09/2024 09:14:02 09/09/19 25 09/09/2024 COMP. METAB OLIC PANEL (14) chloride 104 mmol/ L 96-106 Not Available [facility] ([facility]) [address] [place], [address], 09/09/2024 09:14:02 09/09/19 25 09/09/2024 COMP. METAB OLIC PANEL (14) carbon dioxide, total 22 mmol/ L 20-29 Not Available [facility] ([facility]) [address] [place], [address], 09/09/2024 09:14:02 09/09/19 25 09/09/2024 COMP. METAB OLIC PANEL (14) calcium 9.5 mg/dL 8.7-10 .2 Not Available [facility] ([facility]) [address] [place], [address], 09/09/2024 09:14:02 09/09/19 25 09/09/2024 COMP. METAB OLIC PANEL (14) protein, total 6.7 g/dL 6.0-8. 5 Not Available [facility] ([facility]) [address] [place], [address], 09/09/2024 09:14:02 09/09/19 25 09/09/2024 COMP. METAB OLIC PANEL (14) albumin 4.6 g/dL 4.0-5. 0 Not Available [facility] ([facility]) [address] [place], [address], 09/09/2024 09:14:02 09/09/19 25 09/09/2024 COMP. METAB OLIC PANEL (14) globulin, total 2.1 g/dL 1.5-4. 5 Not Available [facility] ([facility]) [address] [place], [address], 09/09/2024 09:14:02 09/09/19 25 09/09/2024 COMP. METAB OLIC PANEL (14) bilirubin, total 0.2 mg/dL 0.0-1. 2 Not Available [facility] ([facility]) [address], [place], [address], 09/09/2024 09:14:02 09/09/19 25 09/09/2024 COMP. METAB OLIC PANEL (14) alkaline phosphatase 62 IU/L 44-121 Not Available [facility] ([facility]) [address], [place], [address], 09/09/2024 09:14:02 09/09/19 25 09/09/2024 COMP. METAB OLIC PANEL (14) AST (SGOT) 15 IU/L 0-40 Not Available [facility] ([facility]) [address] [place], [address], 09/09/2024 09:14:02 09/09/19 25 09/09/2024 COMP. METAB OLIC PANEL (14) ALT (SGPT) 13 IU/L 0-32 Not Available [facility] ([facility]) [address] [place], [address], 09/09/2024 09:14:02 09/09/19 25 09/09/2024 CBC WITH DIFFE RENTI AL/PL ATELE T WBC 8.2 x10e3 /uL 3.4-10 .8 Not Available [facility] ([facility]) [address] [place], [address], 09/09/2024 09:14:04 09/09/19 25 09/09/2024 CBC WITH DIFFE RENTI AL/PL ATELE T RBC 4.57 x10e6 /uL 3.77-5 .28 Not Available [facility] ([facility]) [address] [place], [address], 09/09/2024 09:14:04 09/09/19 25 09/09/2024 CBC WITH DIFFE RENTI AL/PL ATELE T hemoglobin 13.4 g/dL 11.1-1 5.9 Not Available [facility] ([facility]) [address] [place], [address], 09/09/2024 09:14:04 09/09/19 25 09/09/2024 CBC WITH DIFFE RENTI AL/PL ATELE T hematocrit 41.2 % 34.0-4 6.6 Not Available [facility] ([facility]) [address] [place], [address], 09/09/2024 09:14:04 09/09/1909/09/2024 CBC WITH DIFFE RENTI AL/PL ATELE T MCV 90 fL 79-97 Not Available [facility] ([facility]) [address] [place], [address], 09/09/2024 09:14:04 09/09/19 25 09/09/2024 CBC WITH DIFFE RENTI AL/PL ATELE T MCH 29.3 pg 26.6-3 3.0 Not Available [facility] ([facility]) [address], [place], [address], 09/09/2024 09:14:04 09/09/19 25 09/09/2024 CBC WITH DIFFE RENTI AL/PL ATELE T MCHC 32.5 g/dL 31.5-3 5.7 Not Available [facility] ([facility]) [address] [place], [address], 09/09/2024 09:14:04 09/09/1909/09/2024 CBC WITH DIFFE RENTI AL/PL ATELE T RDW 11.9 % 11.7-1 5.4 Not Available [facility] ([facility]) [address] [place], [address], 09/09/2024 09:14:04 09/09/19 25 09/09/2024 CBC WITH DIFFE RENTI AL/PL ATELE T platelets 293 x10e3 /uL 150-45 0 Not Available [facility] ([facility]) [address] [place], [address], 09/09/2024 09:14:04 09/09/19 25 09/09/2024 CBC WITH DIFFE RENTI AL/PL ATELE T neutrophils 65 % notest ab. Not Available [facility] ([facility]) [address], [place], [address], 09/09/2024 09:14:04 09/09/19 25 09/09/2024 CBC WITH DIFFE RENTI AL/PL ATELE T lymphs 26 % notest ab. Not Available [facility] ([facility]) [address], [place], [address], 09/09/2024 09:14:04 09/09/19 25 09/09/2024 CBC WITH DIFFE RENTI AL/PL ATELE T monocytes 6 % notest ab. Not Available [facility] ([facility]) [address], [place], [address], 09/09/2024 09:14:04 09/09/19 25 09/09/2024 CBC WITH DIFFE RENTI AL/PL ATELE T eos 2 % notest ab. Not Available [facility] ([facility]) [address], [place], [address], 09/09/2024 09:14:04 09/09/19 25 09/09/2024 CBC WITH DIFFE RENTI AL/PL ATELE T basos 1 % notest ab. Not Available [facility] ([facility]) [address], [place], [address], 09/09/2024 09:14:04 09/09/19 25 09/09/2024 CBC WITH DIFFE RENTI AL/PL ATELE T neutrophils (absolute) 5.3 x10e3 /uL 1.4-7. 0 Not Available [facility] ([facility]) [address], [place], [address], 09/09/2024 09:14:04 09/09/19 25 09/09/2024 CBC WITH DIFFE RENTI AL/PL ATELE T lymphs (absolute) 2.2 x10e3 /uL 0.7-3. 1 Not Available [facility] ([facility]) [address] [place], [address], 09/09/2024 09:14:04 09/09/19 25 09/09/2024 CBC WITH DIFFE RENTI AL/PL ATELE T monocytes(ab solute) 0.5 x10e3 /uL 0.1-0. 9 Not Available [facility] ([facility]) [address] [place], [address], 09/09/2024 09:14:04 09/09/19 25 09/09/2024 CBC WITH DIFFE RENTI AL/PL ATELE T eos (absolute) 0.2 x10e3 /uL 0.0-0. 4 Not Available [facility] ([facility]) [address] [place], [address], 09/09/2024 09:14:04 09/09/19 25 09/09/2024 CBC WITH DIFFE RENTI AL/PL ATELE T baso (absolute) 0.1 x10e3 /uL 0.0-0. 2 Not Available [facility] ([facility]) [address] [place], [address], 09/09/2024 09:14:04 09/09/19 25 09/09/2024 CBC WITH DIFFE RENTI AL/PL ATELE T immature granulocytes 0 % notest ab. Not Available [facility] ([facility]) [address] [place], [address], 09/09/2024 09:14:04 09/09/19 25 09/09/2024 CBC WITH DIFFE RENTI AL/PL ATELE T immature grans (abs) 0.0 x10e3 /uL 0.0-0. 1 Not Available [facility] ([facility]) [address] [place], [address], 09/09/2024 09:14:04 Result Notes None recorded. Problems Name Problem SNOMED Code Status Onset Date Resolution Date Notes Provider Name and Address Organization Details Recorded Time Anxiety 32742494 Active 025 THEO Ferguson, [facility] 5 16:08:51 Depressive disorder 07212866 Active 025 THEO Ferguson, [facility] 16:09:22 Problem Notes None recorded. Procedures Surgical History Date Name Laterality Status Provider Name and Address Organization Details Recorded Time 01/04/2025 Date of Last Pap Smear completed Kimberly Reddy MA [facility] 09/08/2024 16:25:47 Imaging Results None recorded. Procedure Notes None [...] 1 TABLET BY MOUTH THREE TIMES DAILY 09/08 completed Not Available Not Available Not Available cholecalcif luli (vitamin D3) 1,250 mcg (50,000 unit) capsule TAKE 1 CAPSULE BY MOUTH ONCE A WEEK 09/08 completed Not Available Not Available Not Available clindamycin 1.2 %-benzoyl peroxide 2.5 % topical gel with pump APPLY A PEA-SIZED AMOUNT TOPICALLY ONCE DAILY TO COVER AREAS OF FACE WITH THIN LAYER active Not Available Not Available No t Available EluRyng 0.12 mg-0.015 mg/24 hr vaginal ring INSERT ONE RING VAGINALLY AND LEAVE IN PLACE FOR 3 CONSECUTI VE WEEKS, THEN REMOVE FOR 1 WEEK. INSERT NEW RING 7 DAYS AFTER THE LAST WAS REMOVED 09/08 completed Not Available Not Available Not Available Vitals Date Recorded Body height Body mass index (BMI) Body weight Body temperature Heart rate Oxygen saturation Oxygen saturation in Arterial blood by Pulse oximetry Systolic blood pressure Diastolic blood pressure Provider Name and Address Organization Details Last Updated DateTime 160.66 cm 23.9 kg/m2 88421.5 6 g 97.9 [degF] 91 /min 99 % 99 % 112 mm[Hg] 71 mm[Hg] Kimberly Reddy MA [facility] 16:43:08 Social History Question Answer Notes LastModified by Organizat ion Details LastModified Time Tobacco Smoking Status Never Smoker Uses Cigarillos for Marijuana Kimberly Reddy MA null, [facility] 09/08/2024 16:29:23 Do You Have An Advance Directive? No Information not available 09/08/2024 Are You Blind Or Do You Have Difficulty Seeing? No Information not available 09/08/2024 What Is Your Level Of Caffeine Consumption? Occasional Information not available 09/08/2024 Are You Deaf Or Do You Have Serious Difficulty Hearing? No Information not available 09/08/2024 What Type Of Diet Are You Following? REGULAR Information not available 09/08/2024 What Was The Date Of Your Most Recent Tobacco Screening? 09/08/2024 Information not available 09/08/2024 How Many Children Do You Have? 1 Information not available 09/08/2024 What Is Your Current Pack Years? 30ormorepacky ears Information not available 09/08/2024 What Is Your Relationship Status? Domestic Partner Information not available 09/08/2024 Do You Use Your Seat Belt Or Car Seat Routinely? Yes Information not available 09/08/2024 Are You Sexually Active? Yes Information not available 09/08/2024 Do You Have Smoke And Carbon Monoxide Detectors In Your Home? Yes Information not available 09/08/2024 At What Age Did You Start Smoking Tobacco? 16 Information not available 09/08/2024 Are You Passively Exposed To Smoke? Yes Information not available 09/08/2024 How Much Tobacco Do You Smoke? 0.25 PPD Information not available 09/08/2024 Do You Use Sunscreen Routinely? Yes Information not available 09/08/2024 How Many Years Have You Smoked Tobacco? 7 Information not available 09/08/2024 Sex: Female Functional Status Question Answer Note LastModified by Organizat ion Details LastModified Time Do you use any illicit or recreational drugs? Marijuana user Information not available 09/08/2024 What is your level of alcohol consumption? Occasional Information not available 09/08/2024 Are you currently employed? No Information not available 09/08/2024 Are you able to care for yourself? Yes Information not available 09/08/2024 What is your exercise level? Moderate Information not available 09/08/2024 Mental Status Question Answer Note LastModified by Organization D etails LastModified Time Do you feel stressed (tense, restless, nervous, or anxious, or unable to sleep at night)? [id number] Information not available 09/08/2024 Family History Relationship Description Onset Age of this Age Resolved Age Notes LastModified by Organization Details LastModified Time Father Alcoholism Not kd ilable 09/08/2024 16:10:27 Father Asthma Not availab le 09/08/2024 16:10:37 Father Depressive disorder Not available 08/2024 16:11:34 Sister Attention deficit hyperactivit y disorder Not available 16:11:00 Mother Malignant tumor of breast Not available 08/2024 16:11:17 Mother Depressive disorder Not available 08/2024 16:11:34 Mother Essential hypertension Not available 09/08/2024 16:11:48 Mother Migraine Not avail able 09/08/2024 16:11:58 Medical History Condition Response Coronary Artery Disease N Other N Atrial Fibrillation N High Blood Pressure N Depression Y COPD N Blood Clots N Anxiety Disorder Y Muscle, Joint, or Bone Problems N Arthritis N Acid Reflux (GERD) N Cancer N Stroke N ADHD N High Cholesterol N Liver Disease N Schizophrenia N Headaches N Thyroid Problems N Kidney or Bladder Problems N GI Problems N Have you had a mammogram in the last yea r? N Eating Disorder N Skin Problems Y Anemia N Heart Attack ([place]) N Diabetes N Seizures/Epilepsy N Have you had a colonoscopy in the last 1 0 years? N Asthma N Allergies N Have you had a PSA blood test in the las t year? N Substance Abuse N Hepatitis N Heart Failure N Osteoporosis N Gynecological History Statement/Question Response Date of Last Mammogram Flow Moderate Date of LMP 08/31/2024 Menses Monthly Y Date of Last Pap Smear 01/04/2025 Age at Menarche 10 Current Control Method Vaginal Rin g Age at First Child 22 LMP Definite Obstetrics History GPAL:G 3 P 1 0 2 1 Type Value Full Term 1 Induced 1 Spontaneous 1 Living 1 Total 3 Past Encounters Encounter ID Performer Location Encounter Start Date Encounter Closed Date Diagnosis/Indication Diagnosis SNOMED-CT Code Diagnosis ICD10 Code Diagnosis Note [id number] Emperatriz Huizar MD [facility] [address] [place] [address] 09/08/2024 15:45:55 09/09/2024 12:16:04 Adult health examination 275176341 Z00.01 Discussed healthy lifestyle habits such as diet, exercise and sleep. PAP- 5MAMMOs- will begin at 25 as mom was diagnosed with BC at 36 yo.Tetanus booster was give during in [place]. Pt will bring records. 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 No thoughts of SI/HI. Many medication s make her agitated/f atigued.-s he would like to see psych again when she is ready-she listens to music, walks, works out, meditates to control now Pain in coccyx 78684202 M53.3 -pain has been ongoing since a child. States she had xrays at 13.-will get updated xrays and refer as needed. Health Concerns Section Related Observation LastModified by Organization Detai ls LastModified Time None Recorded Concern Status LastModified by Organization Details LastModified Time None Recorded Advance Directives Directive N: Payers Insurance Date Sequence Insurance Name Policy Number Policy Ang Covered Member ID Ang Member ID Guarantor Name 09/08/2024 1 [employer] (MEDICAID HMO) [id number] Yamilet Chacon [id number] Yamilet E Oswaldo Notes Date Note Type Note Provider Name and Address Organization Details Recorded Time 09/08/2024 text/html Yamilet is here today for a new patient appt. She has no complaints. She just wants to be established with a provider. Josephine Houser, [employer] Attn: [address] [place], [address], [facility] 09/08/2024 17:15:19 OBGyn Episode No OBEpisode recorded.
--- OUTSIDE RECORDS SUMMARY | 2024-09-16 11:54 | XMS_ITS | Data Portability ---
Author Organization [facility] [place] [facility] Nneka chris Pelayo, [email or web address] Address [address] [place] [address] Care Team Providers Care Equipment Associate Name Role Phone NYASIA CHAPIN Telecommunications Network Engineer Assessment No assessment recorded. Plan of Treatment Reminders Order Date Submit Date Provider Last Modified By Organization Details Last Modified Time Details Appointments None recorded. Lab streptococc us group B Ag, vaginal 2022 023 [facility] (Lab), [address], [place], [address], 3 09:00:58 HIV 1+O+2 Ab, QN, serum 2022 023 [facility] (Lab), [address], [place], [address], 3 13:20:10 HBsAg (hepatitis B surface Ag), serum 2022 023 [facility] (Lab), [address], [place], [address], 3 13:20:08 RPR (rapid plasma reagin), serum 2022 023 [facility] (Lab), [address], [place], [address], 3 15:52:20 CT + NG + TV, DNA, urine/swab 2022 023 [facility] [address] [facility], [place], [address], 01:06:19 Referral None recorded. Procedures None recorded. Surgeries None recorded. Imaging US, doppler, umbilical artery velocimetry 2022 023 [email or web address] 23 [facility], [address], [place], [address], 10:56:33 US, obstetric, biophysical profile 2022 023 [email or web address] 23 [facility], [address], [address], [place], [address], 10:56:33 unlisted imaging order - [facility] OB US 2022 023 [email or web address] 23 [facility], [address] 3 10:56:33 US, obstetric, biophysical profile 2022 023 [email or web address] [facility], [address], [address], [place], [address], 13:33:59 US, doppler, umbilical artery velocimetry 2022 023 [email or web address] [facility], [address], [address], [place], [address], 13:33:59 unlisted imaging order - [facility] US 2022 023 [email or web address] [facility], [address] 3 13:33:59 US, obstetric, follow-up 2022 023 [email or web address] [facility], [address], [address], [place], [address], 13:33:59 Medication Orders None recorded. Patient TargetsNo targets recorded. Patient Instructions Encounter Date Encounter Id Patient Instructions Last Modified By Organization Details Last Modified Time 01/28/2023 [id number] Patient was counseled on kick counts and advised to present to Labor and Delivery Triage for decreased movement. She was advised that the normal is 10 times in 2 hours. If you feel decreased movements, change your activity and have something to eat or drink. If you continue to have decreased movement then present to the Hospital immediatly. Also present for eval for bleeding or increased leakage of fluid. [email or web address] Not available 01/28/2023 10:36:22 Reason for Referral None Reported. Results Created Date Observation Date Name Description Value Unit Range Abnormal Flag Note LastModifiedBy Organization Detail LastModifiedTime 01/16/2001/16/2023 LEUKO RRHEA PANEL BY REAL- TIME PCR chlamydia trachomatis by real-time PCR (reflex to azithromycin resistance by pyrosequenci ng) NEGATI VE normal Swab- 1 Vagin al Not Available [facility] [address] [place] [address], [address], 01/17/2023 01:06:19 01/16/2001/16/2023 LEUKO RRHEA PANEL BY REAL- TIME PCR mycoplasma genitalium by real-time PCR (reflex to azithromycin and fluoroquinol one resistance) NEGATI VE normal Swab- 1 Vagin al Not Available [facility] [address] [place] [address], [address], 01/17/2023 01:06:19 01/16/2001/16/2023 LEUKO RRHEA PANEL BY REAL- TIME PCR neisseria gonorrhoeae by real-time PCR (reflex to antibiotic resistance by molecular analysis) NEGATI VE normal Swab- 1 Vagin al Not Available [facility] [address] [place] [address], [address], 01/17/2023 01:06:19 01/16/2001/17/2023 LEUKO RRHEA PANEL BY REAL- TIME PCR trichomonas vaginalis by real-time PCR (reflex to metronidazol e resistance) NEGATI VE normal Swab- 1 Vagin al Not Available [facility] [address] [place] [address], [address], 01/17/2023 01:06:19 01/22/2001/23/2023 GBS ENRIC HED group B strep by naat NEGATI VE negati ve normal Not Available [facility] (Lab) [address], [place], [address], 01/23/2023 09:00:58 01/31/2001/30/2023 HEP BS AG hep BS Ag NONREA CTIVE nonrea ctive normal Not Available [facility] (Lab) [address], [place], [address], 01/30/2023 13:20:08 01/31/2001/30/2023 HIV P24 AG, HIV-1 , 2 AB COMBO SCREE N HIV Ag, Ab combo screen NONREA CTIVE nonrea ctive normal Not Available [facility] (Lab) [address], [place], [address], 01/30/2023 13:20:10 01/31/2001/30/2023 RPR QUAL RPR ql NON-RE ACTIVE non-re active normal Not Available [facility] (Lab) [address], [place], [address], 01/30/2023 15:52:20 01/22/2001/21/2023 US, obste tric, follo w-up No observ ation record ed. [facility] [address], [place], [address], 01/21/2023 13:36:06 01/22/2001/21/2023 OB/gy n follo w up No observ ation record ed. [facility] [address], [place], [address], 01/21/2023 09:27:36 01/22/2001/21/2023 US, obste tric, bioph ysica l profi le No observ ation record ed. [facility] [address], [place], [address], 01/21/2023 09:06:12 01/22/2001/21/2023 US, doppl er, umbil ical arter y veloc imetr y No observ ation record ed. [facility] [address], [place], [address], 01/21/2023 09:06:02 01/29/2001/28/2023 US, doppl er, umbil ical arter y veloc imetr y No observ ation record ed. [facility] [address], [place], [address], 01/28/2023 09:40:28 01/29/2001/28/2023 US, obste tric, bioph ysica l profi le No observ ation record ed. [facility] [address], [place], [address], 01/28/2023 09:40:18 01/29/2001/28/2023 OB/gy n-bpp No observ ation record ed. [facility] [address], [place], [address], 02/02/2023 18:29:30 Result Notes None recorded. Problems Name Problem SNOMED Code Status Onset Date Resolution Date Notes Provider Name and Address Organization Details Recorded Time 73362092 Completed 202202/16/2023 Leo Carcamo null, [place] - [facility] 3 12:14:23 growth restriction 78938731 Active 2022 All Darnell null, [place] - [facility] 3 09:04:45 Polyhydramni os 86542089 Active 2022 All Darnell null, [place] - [facility] 3 09:55:53 Problem Notes None recorded. Medical Equipment None Reported. Allergies No known drug allergies Medications Name Sig Start Date Stop Date Status Note LastModified by Organization Details LastModified Time amoxicillin 500 mg capsule Take 1 capsule 3 times a day by oral route for 7 days. 09/02 completed Not Available Not Available Not Available ibuprofen 800 mg tablet TAKE 1 TABLET BY MOUTH EVERY 8 HOURS NEEDED FOR PAIN active Not Available Not Available No t Available terconazole 0.8 % vaginal cream Insert 1 applicato rful every day by vaginal route for 3 days. 09/02 completed Not Available Not Available Not Available tramadol 50 mg tablet TAKE 1 TABLET BY MOUTH EVERY 6 HOURS FOR 7 DAYS NEEDED FOR PAIN 03/09 completed Not Available Not Available Not Available promethazin e 25 mg tablet Take 1 tablet by oral route as directed for 3 days. 09/02 completed Not Available Not Available Not Available bromphenira mine-pseudo ephedrine-D M 2 mg-30 mg-10 mg/5 mL oral syrup TAKE 5 ML BY MOUTH EVERY 4 TO 6 HOURS NEEDED FOR COUGH FOR 7 DAYS 08/05 completed Not Available Not Available Not Available amoxicillin 875 mg-potassiu m clavulanate 125 mg tablet TAKE 1 TABLET BY MOUTH TWICE DAILY FOR 10 DAYS 08/05 completed Not Available Not Available Not Available nitrofurant oin monohydrate /macrocryst als 100 mg capsule Take 1 capsule every 12 hours by oral route for 7 days. 09/02 completed Not Available Not Available Not Available one daily po active Not Available Not Available No t Available clindamycin 1.2 % (1 % base)-benzo yl peroxide 5 % topical gel APPLY TOPICALLY TO AFFECTED AREA TWICE DAILY 09/02 completed Not Available Not Available Not Available Take Action 1.5 mg tablet USE DIRECTED 1 TABLET BY MOUTH ONCE LYNN BEFORE 02/22/2208/05 completed Not Available Not Available Not Available Vitafol Gummies 3.33 mg iron-0.33 mg chewable tablet Chew by oral route for 30 days. 08/05 completed Not Available Not Available Not Available Vitals Date Recorded Body height Body mass index (BMI) Body weight Heart rate Oxygen saturation Oxygen saturation in Arterial blood by Pulse oximetry Systolic blood pressure Diastolic blood pressure Provider Name and Address Organization Details Last Updated DateTime 3 157.48 cm 25.1 kg/m2 14870.8 60215 g 77 /min 100 % 100 % 118 mm[Hg] 78 mm[Hg] Maddy Gaspar [facility] 3 16:05:58 Date Recorded Body height Body mass index (BMI) Body weight Heart rate Body temperature Oxygen saturation Oxygen saturation in Arterial blood by Pulse oximetry Systolic blood pressure Diastolic blood pressure Provider Name and Address Organization Details Last Updated DateTime 3 157.48 cm 25.6 kg/m2 98183.2 88004 g 77 /min 98.9 [degF] 97 % 97 % 111 mm[Hg] 73 mm[Hg] Maddy Gaspar [facility] 3 09:10:32 Date Recorded Body height Body mass index (BMI) Body weight Heart rate Respiratory rate Body temperature Systolic blood pressure Diastolic blood pressure Provider Name and Address Organization Details Last Updated DateTime 3 157.48 cm 25.8 kg/m2 92367.5 2417 g 74 /min 18 /min 98.1 [degF] 127 mm[Hg] 85 mm[Hg] Ирина Waldrop [facility] 3 10:30:43 Date Recorded Body height Heart rate Respiratory rate Body temperature Body mass index (BMI) Body weight Systolic blood pressure Diastolic blood pressure Provider Name and Address Organization Details Last Updated DateTime 3 157.48 cm 88 /min 20 /min 98.1 [degF] 22.6 kg/m2 24659.7 4 g 103 mm[Hg] 72 mm[Hg] Leo Carcamo [facility] 3 12:19:19 Date Recorded Body height Body mass index (BMI) Body weight Heart rate Body temperature Oxygen saturation Oxygen saturation in Arterial blood by Pulse oximetry Systolic blood pressure Diastolic blood pressure Provider Name and Address Organization Details Last Updated DateTime 3 157.48 cm 22.3 kg/m2 99095.2 7 g 85 /min 98.1 [degF] 97 % 97 % 122 mm[Hg] 81 mm[Hg] Maddy Mullinsmeenakshi [facility] 3 11:50:57 Social History Question Answer Notes LastModified by Organizat ion Details LastModified Time Tobacco Smoking Status Former Smoker Not Available [employer] 03/16/2023 11:46:52 Do You Have An Advance Directive? No [email or web address] Information not available 08/05/2022 If You Are , What Was Your Level Of Alcohol Consumption Prior To ? Moderate Information not available 01/28/2023 Is Blood Transfusion Acceptable In An Emergency? Yes [email or web address] Information not available 03/16/2023 What Is Your Level Of Caffeine Consumption? Moderate [email or web address] Information not available 03/16/2023 What Is Your Code Status? Full Code Information not available 01/28/2023 What Type Of Diet Are You Following? REGULAR Information not available 01/28/2023 Have You Processed Blood Or Body Fluids From An Ebola Virus Disease Patient Without Appropriate PPE? No Information not available 01/28/2023 Do You Reside In Or Have You Traveled To An Area Where Ebola Virus Transmission Is Active? No Information not available 01/28/2023 What Is The Highest Grade Or Level Of School You Have Completed Or The Highest Degree You Have Received? [id number] Information not available 01/28/2023 Are There Any Guns Present In Your Home? Yes Information not available 01/28/2023 Where Do You Live? SingleLevelHouse Information not available 01/28/2023 Patients Living Environment Safe And Secure? Yes [email or web address] Information not available 08/05/2022 High Risk For Falls? No [email or web address] Information not available 08/05/2022 Readiness To Learn Accepting [email or web address] Information not available 08/05/2022 Barriers To Learning None [email or web address] Information not available 08/05/2022 Learning Preferences No Preferences Information not available 08/05/2022 Have You Had A Fever And/or Symptoms Of A Lower Respiratory Illness (cough, Difficulty Breathing, Etc)? No [email or web address] Information not available 08/05/2022 Have You Had Any Of These Symptoms: Chills ,Headache, Fatigue, Muscle Or Body Aches , Sore Throat, New Loss Of Taste Or Smell, Nausea Or Vomiting, Or Diarrhea? No [email or web address] Information not available 08/05/2022 Have You Had A COVID-19 Vaccine In The Last 7 Days? No [email or web address] Information not available 08/05/2022 In The Past 10 Days, Have You Been Told You May Have COVID-19 Or Have Been Tested For COVID-19? No [email or web address] Information not available 08/05/2022 0) Information Provided By : Patient [email or web address] Information not available 01/15/2023 1a) Does The Patient/Caregive r/Family Report The PATIENT Having Any Of These NEW Symptoms Such As Cough? No [email or web address] Information not available 01/15/2023 1b) Does The Patient/Caregive r/Family Report The PATIENT Having Any Of These NEW Symptoms Such As Diarrhea? No [email or web address] Information not available 01/15/2023 1c) Does The Patient/Caregive r/Family Report The PATIENT Having Any Of These NEW Symptoms Such As Fever/chills? No [email or web address] Information not available 01/15/2023 1d) Does The Patient/Caregive r/Family Report The PATIENT Having Any Of These NEW Symptoms Such As Nasal Congestion/Runny Nose? No [email or web address] Information not available 01/15/2023 1e) Does The Patient/Caregive r/Family Report The PATIENT Having Any Of These NEW Symptoms Such As Respiratory Distress (acute)? No [email or web address] Information not available 01/15/2023 1f) Does The Patient/Caregive r/Family Report The PATIENT Having Any Of These NEW Symptoms Such As Rash? No [email or web address] Information not available 01/15/2023 1g) Does The Patient/Caregive r/Family Report The PATIENT Having Any OTHER NEW Symptoms (list)? If No NEW Symptoms, Enter No No [email or web address] Information not available 01/15/2023 Do You Have A Medical Power Of Marksmanship Instructor? No Information not available 01/28/2023 What Was The Date Of Your Most Recent Tobacco Screening? 03/16/2023 [email or web address] Information not available 03/16/2023 Do You Have An Out Of Hospital DNR? No Information not available 01/28/2023 Do You Have A Patient Advocate? No Information not available 01/28/2023 Do You Have Any Pets? Yes 1 Dog Information not available 01/28/2023 Do You Use Protection During Sex? No Information not available 01/28/2023 What Is Your Relationship Status? Single Information not available 01/28/2023 Do You Use Your Seat Belt Or Car Seat Routinely? Yes Information not available 01/28/2023 Are You Sexually Active? Yes Information not available 01/28/2023 Do You Have Smoke And Carbon Monoxide Detectors In Your Home? Yes Information not available 01/28/2023 Are You Passively Exposed To Smoke? No Information not available 01/28/2023 Do You Participate In Social Media? Yes Information not available 01/28/2023 Have You Recently Traveled Abroad? No Information not available 01/28/2023 Are You Currently In School? Yes Information not available 01/28/2023 Do You Have Any Dietary Restrictions? No Information not available 01/28/2023 Sex: Female Functional Status Question Answer Note LastModified by Organizat ion Details LastModified Time Do you use any illicit or recreational drugs? No Information not available 01/28/2023 What is your level of alcohol consumption? None [email or web address] Information not available 03/16/2023 Are you currently employed? Yes [email or web address] Information not available 03/16/2023 Are you able to care for yourself? 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 None Information not available 01/28/2023 Mental Status Question Answer Note LastModified by Organization D etails LastModified Time Do you feel stressed (tense, restless, nervous, or anxious, or unable to sleep at night)? [id number] Information not available 01/28/2023 Family History Relationship Description Onset Age of this Age Resolved Age Notes LastModified by Organization Details LastModified Time Maternal Grandmother Diabetes mellitus [email or web address] Not available 2022 09:29:23 Father Harmful pattern of use of alcohol [email or web address] Not available 2022 11:46:50 Father Asthma [email or web address] Not available 02/2023 11:46:50 Father Depressive disorder [email or web address] Not available 2022 11:46:50 Father Anxiety [email or web address] Not available 11:46:50 Mother Malignant tumor of breast [email or web address] Not available 2022 11:46:56 Medical History Condition Response acid reflux/GERD Y Gynecological History Statement/Question Response Abnormal Pap N Flow Moderate Date of LMP 05/11/2022 Mammogram in Past 24 months N Duration of Flow (days) 4 Age at Menarche 10 Current Control Method Breastfeedi ng/GHOSH Cramps Y Monogamy History Yes Date of Last Colonoscopy Frequency of Cycle (Q days) 28 Menses Monthly Y Date of Last Pap Smear Would you like to schedule Mammogram Naveen ointment? N Obstetrics History GPAL:G 1 P 1 0 0 1 Type Value Full Term 1 Living 1 Total 1 Immunizations Vaccine Type Date Status Note Provider Nam e and Address Organization Details Recorded Time Hib-Hep B 1 completed Not Available [employer] 03/16/2023 11:46:51 Hib-Hep B 0 completed Not Available [employer] 03/16/2023 11:46:51 Hib-Hep B 1 completed Not Available [employer] 03/16/2023 11:46:51 meningococcal B, recombinant 9 completed Not Available [employer] 03/16/2023 11:46:51 HPV9 9 completed Not Available [employer] 03/16/2023 11:46:51 IPV 1 completed Not Available [employer] 03/16/2023 11:46:51 IPV 1 completed Not Available [employer] 03/16/2023 11:46:51 IPV 1 completed Not Available [employer] 03/16/2023 11:46:51 IPV 1 completed Not Available [employer] 03/16/2023 11:46:51 IPV 5 completed Not Available [employer] 03/16/2023 11:46:51 IPV 1 completed Not Available [employer] 03/16/2023 11:46:51 MMR 5 completed Susy Young null, [place] - [facility] 08/05/2022 09:55:42 MMR 1 completed Susy Young null, [place] - [facility] 08/05/2022 09:55:42 pneumococcal conjugate PCV 7 1 completed Not Available [employer] 03/16/2023 11:46:51 pneumococcal conjugate PCV 7 1 completed Not Available [employer] 03/16/2023 11:46:51 pneumococcal conjugate PCV 7 1 completed Not Available [employer] 03/16/2023 11:46:51 pneumococcal conjugate PCV 7 3 completed Not Available [employer] 03/16/2023 11:46:51 Tdap 3 completed Susy Young null, [place] [facility] 08/05/2022 09:55:42 varicella 3 completed Susy Young null, [place] [facility] 08/05/2022 09:55:42 varicella 1 completed Susy Young null, [place] - [facility] 08/05/2022 09:55:42 HPV, quadrivalent 3 completed Not Available [employer] 03/16/2023 11:46:51 HPV, quadrivalent 3 completed Not Available [employer] 03/16/2023 11:46:51 Hep A, ped/adol, 2 dose 9 completed Not Available [employer] 03/16/2023 11:46:51 meningococcal MCV4P 9 completed Not Available [employer] 03/16/2023 11:46:51 DTaP 1 completed Not Available [employer] 03/16/2023 11:46:51 DTaP 1 completed Not Available [employer] 03/16/2023 11:46:51 DTaP 5 completed Not Available [employer] 03/16/2023 11:46:51 DTaP 1 completed Not Available [employer] 03/16/2023 11:46:51 DTaP 0 completed Not Available [employer] 03/16/2023 11:46:51 meningococcal MCV4, unspecified formulation 5 completed Not Available [employer] 03/16/2023 11:46:51 Hep A, unspecified formulation 5 completed Not Available [employer] 03/16/2023 11:46:51 Past Encounters Encounter ID Performer Location Encounter Start Date Encounter Closed Date Diagnosis/Indication Diagnosis SNOMED-CT Code Diagnosis ICD10 Code Diagnosis Note [id number] MD LUIS [facility] [address] [address] 08/05/2022 09:28:18 08/05/2022 12:32:31 screening 615017561 Z36.9 Screening for malignant neoplasm of cervix 585327970 Z12.4 Routine an tenatal care 762486401 Z34.91 Gestation period, 12 weeks 10730968 Z3A.12 [id number] MD LUIS [facility] [address] [address] 09/02/2022 10:53:18 09/02/2022 11:23:15 Gestation period, 16 weeks 26855653 Z3A.16 Routine an tenatal care 442795763 Z34.91 Urinary tr act infection in 857240781 O23.42 [id number] MD LUIS [facility] [address] [address] 09/30/2022 11:21:13 09/30/2022 12:42:04 Routine care 602706957 Z34.92 Gestation period, 20 weeks 53541472 Z3A.20 [id number] MD LUIS [facility] [address] [address] 10/31/2022 08:36:35 10/31/2022 09:07:01 Gestation period, 24 weeks 567725758 Z3A.24 Routine an tenatal care 489198594 Z34.92 screening 2437 70147 Z36.9 [id number] MD LUIS [facility] [address],[place] [address] 12/02/2022 09:57:48 12/02/2022 10:37:07 Gestation period, 29 weeks 26448591 Z3A.29 Routine an tenatal care 441073313 Z34.92 [id number] MD LUIS [facility]OBDOU[facility]AS [facility] [address] [address] 12/16/2022 10:11:28 12/16/2022 10:38:15 Gestation period, 31 weeks 78441432 Z3A.31 Routine an tenatal care 209334853 Z34.93 [id number] MD LUIS [facility]eller_OBDOUGLAS [facility] [address] [address] 01/15/2023 15:54:27 01/15/2023 16:24:10 Gestation period, 35 weeks 52412974 Z3A.35 Routine an tenatal care 835439054 Z34.92 screening 2437 86508 Z36.9 History of SARS-CoV-2 29 54354828 13236775 Z86.16 advised aspirin daily [id number] MD LUIS [facility] [address] [address] 01/21/2023 08:25:39 01/21/2023 09:45:46 Gestation period, 36 weeks 84837513 Z3A.36 screening 2437 05191 Z36.85 Routine an tenatal care 988587486 Z34.83 grow th restriction 75229451 O36.5930 IPI 5pm 02/01/23 [id number] Nyasia Chapin MD [facility] [address] [place] [address] 01/28/2023 09:37:35 01/28/2023 10:56:33 growth restriction 01241378 O36.5999 Polyhydramnios 91898554 O40.3XX0 Routine an tenatal care 605578987 Z34.93 Gestation period, 37 weeks 22347088 Z3A.37 [id number] Nyasia Chapin MD [facility] [address] [place] [address] 02/16/2023 12:08:07 02/16/2023 13:04:25 care 380730134 Z39.2 [id number] Nyasia Chapin MD [facility] [address] [place] [address] 03/16/2023 11:46:46 03/16/2023 12:28:43 care 519135139 Z39.2 Health Concerns Section Related Observation LastModified by Organization Detai ls LastModified Time None Recorded Concern Status LastModified by Organization Details LastModified Time None Recorded Advance Directives Directive N: Payers Insurance Date Sequence Insurance Name Policy Number Policy Ang Covered Member ID Ang Member ID Guarantor Name 11/05/2022 1 [place] [id number] Yamilet Chacon [id number] Yamilet Chacon 02/01/2023 1 [employer] (MEDICARE REPLACEMENT/AD VANTAGE - HMO) Yamilet Chacon [id number] Yamilet Chacon 08/13/2023 1 [employer] (MEDICAID REPLACEMENT - HMO) Yamilet Chacon [id number] Yamilet Chacon Notes Date Note Type Note Provider Name and Address Organization Details Recorded Time 02/16/2023 text/html VisitReported bypatient.Onset/Juma ing:date of delivery: (02/02/23) Quality: Context:complicatio ns of : IUGR Nyasia Chapin MD [address], [place], [address], [facility] 02/16/2023 12:37:02 03/16/2023 text/html VisitReported bypatient.Onset/Juma ing:date of delivery: (02/02/23) Quality: Context:complicatio ns of : IUGR Nyasia Chapin MD [address], [place], [address], [facility] 03/16/2023 12:26:17 OBGyn Episode Ob Episode Information Episode Created Date Number of Fetuses Patient Bloodtype Patient rh Status Prepregnancy Weight lbs Domestic Partner Domestic Partner Phone Father Name Production Machinist Status 08/06/19 23 1 A Positive 95 Raghavendra King CLOSED Fetus Data First Name Last Name Admitted to NICU Weight (g) Sex Living Outcome Pediatric Complications Fetus ID Race Codes Race Delivery Type Raghavendra Fowle r false 2948.34 8 M true Full Term low heart rate [id number] Afric an Ameri can Vaginal Dilshad Calculation Initial Dilshad Date Initial Exam Date Initial Exam Provider Initial Ultrasound Date Last Menstrual Period Date Ultra Sound Weeks Gestation 02/15/2023 08/05/2022 08/05/2022 05/11/2022 12 Eighteen To Twenty Week Dilshad Update Ultra Sound Date Fundal Height At Umbil Quickening Date Ultra Sound Latest Weeks Gestation Final Dilshad Confirmed By Final Dilshad Confirmed Date Final Dilshad Date Ultra Sound Latest Days Gestation 0 02/16/20 23 0 Pre-flako Flowsheet Flowsheet Date 08/05/2022 Robbins Score Blood Edema Fundus Height Fundus Units Glucose Ketones Leukocytes Nitrite Labor Signs Protein Cervic Dilation Cervic Effacement Cervic Station trace none none negative none Negative neg Type Weight in lbs Pre/Post Dialysis Refused With clothes 104.781682820557 BP Diastolic BP Location Tested BP Systolic BP Type 59 L arm 110 sitting Fetus Heart Rate Present A 155 Present Fetus Movement A No Comments New OB, states she was in e ER for ear infection last and placed on antiobiotics, c/o headache and LBP, Tyoung, Building Insulation Installer Flowsheet Date 09/02/2022 Robbins Score Blood Edema Fundus Height Fundus Units Glucose Ketones Leukocytes Nitrite Labor Signs Protein Cervic Dilation Cervic Effacement Cervic Station neg none none negative none Negative Other (see comments ) neg Type Weight in lbs Pre/Post Dialysis Refused With clothes 108.623646552755 BP Diastolic BP Location Tested BP Systolic BP Type 72 R arm 107 sitting Fetus Heart Rate Present A 148 Present Fetus Movement Comments KR- c/o abdominal cramping, constipation, no other complaints - Pt did not finish RX (only took 4 tablets) for UTI due to vomiting and states she probably still has infection- CWNT- will send urine for culture again. No sxs. No fever chills, no more N/V. No FM yet Flowsheet Date 09/30/2022 Robbins Score Blood Edema Fundus Height Fundus Units Glucose Ketones Leukocytes Nitrite Labor Signs Protein Cervic Dilation Cervic Effacement Cervic Station neg none 20 cm none negative none Negative neg Type Weight in lbs Pre/Post Dialysis Refused With clothes 110.522841636574 BP Diastolic BP Location Tested BP Systolic BP Type 71 R arm 108 sitting Fetus Heart Rate Present A 153 Present Fetus Movement A Yes Comments EFW 323 gm, 27% -mastinc/o b ack pain, no other complaints Flowsheet Date 10/31/2022 Robbins Score Blood Edema Fundus Height Fundus Units Glucose Ketones Leukocytes Nitrite Labor Signs Protein Cervic Dilation Cervic Effacement Cervic Station neg none 24 cm none negative none Negative neg Type Weight in lbs Pre/Post Dialysis Refused With clothes 118.988221858468 BP Diastolic BP Location Tested BP Systolic BP Type 69 R arm 113 sitting Fetus Heart Rate Present A 146 Present Fetus Movement A Yes Comments NT- no ctx, lof, vb Good FM. NUÑEZ- advised tylenol or excedrin Flowsheet Date 12/02/2022 Robbins Score Blood Edema Fundus Height Fundus Units Glucose Ketones Leukocytes Nitrite Labor Signs Protein Cervic Dilation Cervic Effacement Cervic Station neg none none negative none Negative Other (see comments ) neg Type Weight in lbs Pre/Post Dialysis Refused With clothes 126.746746829983 BP Diastolic BP Location Tested BP Systolic BP Type 73 R arm 114 sitting Fetus Heart Rate Present A 141 Present Fetus Movement A Yes Comments c/o back pain, no other comp laints, good Fm Flowsheet Date 12/16/2022 Robbins Score Blood Edema Fundus Height Fundus Units Glucose Ketones Leukocytes Nitrite Labor Signs Protein Cervic Dilation Cervic Effacement Cervic Station neg 31 cm none negative none Negative none neg Type Weight in lbs Pre/Post Dialysis Refused Weight 130.357895874881 BP Diastolic BP Location Tested BP Systolic BP Type 71 L arm 110 sitting Fetus Heart Rate Present A 137 Present Fetus Movement A Yes Comments Endorses good movement . Denies any spotting, cramping, bleeding, or LOF. C/o fatigue. Recommended starting daily iron supplementation. Denies any further questions or concerns. Flowsheet Date 01/15/2023 Robbins Score Blood Edema Fundus Height Fundus Units Glucose Ketones Leukocytes Nitrite Labor Signs Protein Cervic Dilation Cervic Effacement Cervic Station neg trace 34 cm none negative none Negative Other (see comments ) neg Type Weight in lbs Pre/Post Dialysis Refused With clothes 137.075769634262 BP Diastolic BP Location Tested BP Systolic BP Type 78 R arm 118 sitting Fetus Heart Rate Present A 127 Present Fetus Movement A Yes Comments c/o back pain, no other comp laints, good FM Flowsheet Date 01/21/2023 Robbins Score Blood Edema Fundus Height Fundus Units Glucose Ketones Leukocytes Nitrite Labor Signs Protein Cervic Dilation Cervic Effacement Cervic Station neg trace none negative none Negative Other (see comments ) neg Type Weight in lbs Pre/Post Dialysis Refused With clothes 139.866188898183 BP Diastolic BP Location Tested BP Systolic BP Type 73 R arm 111 sitting Fetus Heart Rate Present A 121 Present Fetus Movement A Yes Comments EFW is 2397g, 9% -mjohnsonc/ o back pain, aide penn, no other complaints Flowsheet Date 01/28/2023 Robbins Score Blood Edema Fundus Height Fundus Units Glucose Ketones Leukocytes Nitrite Labor Signs Protein Cervic Dilation Cervic Effacement Cervic Station 2+ none 35 cm none negative none Negative none neg Type Weight in lbs Pre/Post Dialysis Refused With clothes 141.616141324915 BP Diastolic BP Location Tested BP Systolic BP Type 85 L arm 127 sitting Fetus Heart Rate Present A 134 Present Fetus Movement A Yes Comments JORDIN: 24.3, BPP: 8/ Denies V b, LOf, ctx. Pt scheduled for induction 02/01. Declines SVE today. Discussed return precautions. Flowsheet Date 02/16/2023 Robbins Score Blood Edema Fundus Height Fundus Units Glucose Ketones Leukocytes Nitrite Labor Signs Protein Cervic Dilation Cervic Effacement Cervic Station Type Weight in lbs Pre/Post Dialysis Refused With clothes 123.029112303384 BP Diastolic BP Location Tested BP Systolic BP Type 72 L arm 103 sitting Fetus Heart Rate Present Fetus Movement Comments Menstrual History Last Menstrual Date Menses Monthly On Bcp Conception Prior Menses Frequency Hcg Plus Date Menarche Onset Age 0205/11/2022 true 28 Genetic Screening And Infection History Question Response Note Patient's Age Will Be 35 Yea rs Or Older At Estimated Date of Delivery false Thalassemia (Occitan, Divehi, Mediterranean, Or Background): MCV < 80 false Neural Tube Defect (Meningom yelocele, Spina Bifida, Or Anencephaly) true FOB sister Congenital Heart Defect false Down Syndrome false Alfred-Sachs (eg, Mormon, Cajun, Macedonian-Pickens) f alse Tyshawn Disease false Sickle Cell Disease Or Trait () false Hemophilia Or Other Blood Disorders false Muscular Dystrophy false Cystic Fibrosis false [place]'s Chorea false Mental Retardation/Autism false If Yes, Was Person Tested For Fragile X? false Other Inherited Genetic Or Chromosomal Disorder false Maternal Metabolic Disorder (eg, Type 1 Diabetes , PKU) false Patient Or Baby's Father Had A Child With Defects Not Listed Above false Recurrent Loss, Or A Stillbirth false Medications (including Suppl ements, Vitamins, Herbs, OTC Drugs), Illicit/Recreational Drugs, Alcohol false If Yes, Agent(s) And Strength/Dosage false Any Other Genetic History false Live With Someone With TB Or Exposed To TB false Patient Or Partner Has History Of Genital Herpes false Rash Or Viral Illness Since Last Menstrual Perio d false History Of STD, Gonorrhea, Chlamydia, HPV, Syphi lis false Other Infection History false History of HIV false Congenital Heart Defect false Thalassemia (Occitan, Divehi, Mediterranean, Or Background): MCV < 80 false Cystic Fibrosis false History of Hepatitis false Muscular Dystrophy false Jimi's Chorea false Sickle Cell Disease Or Trait () false Down Syndrome false Mental Retardation/Autism false Prior GBS-infected child false Plans and Education First Trimester Discussed Date Discussion Item Discussion Note Discuss ed By 08/05/2022 Anticipated course of care [id number] 08/05/2022 Alcohol [email or web address] 08/05/2022 Intimate partner violence ty [email or web address] 08/05/2022 Environmental/work hazards t [email or web address] 08/05/2022 Screening for aneuploidy tyo ung44 08/05/2022 Nutrition counseling ; special diet; dietary precautions (mercury, listeriosis) [email or web address] 08/05/2022 Childbirth classes/hospital facilities [id number] 08/05/2022 HIV and other routine tests [id number] 08/05/2022 Risk factors identif ied by history [email or web address] 08/05/2022 Weight gain counseling tyoun g44 08/05/2022 Exercise [email or web address] 08/05/2022 Teratogens 08/05/2022 Use of any medicatio ns (including supplements, vitamins, herbs, or OTC drugs) [id number] 08/05/2022 [email or web address] 08/05/2022 Sexual activity 08/05/2022 Tobacco/smoking cess ation counseling (ask, advise, assess, assist, and arrange) [email or web address] 08/05/2022 Illicit/recreational drugs t young44 08/05/2022 Dental care [email or web address] 08/05/2022 Travel 08/05/2022 Seat belt use 08/05/2022 Indications for ultrasonography [id number] 08/05/2022 Avoidance of saunas or hot tubs [email or web address] 08/05/2022 Toxoplasmosis precautions (cats/raw meat) [id number] 08/05/2022 Healthy Start Form signed and in Chart [email or web address] Second Trimester Discussed Date Discussion Item Discussion Note Discuss ed By Third Trimester Discussed Date Discussion Item Discussion Note Discuss ed By Delivery Information Delivery Date Delivery Type Labor Anesthesia Weeks Gestation Incision Type Labor Labor Length Hrs Delivered By Post Complications Tubal Sterilization Discharge Date Comments 3 Induce d Regional-Ep idural 38.1 Nyasia Wyatt MD None 02/04/2023 Discharge Information Feeding Method Contraceptive Method Maternal HG B and HCT Levels Breast
== END 2024-09-16 11:44 | disposition home or self-care (01) ==
DX: M53.3 Sacrococcygeal disorders, not elsewhere classified (principal)
CPT/HCPCS: 72220

== ENCOUNTER 2025-02-16 10:23 | Outpatient (CLI) | payer OTHER, SELFPAY ==
--- NOTE | ~2025-02-16 | US_ITS ---
EXAMINATION: US axilla LT, 02/16/2025 10:27 DEAL ARCHITECT HISTORY: LYMPH NODES Comparison: None Technique: Key-scale and color Doppler images were obtained. Findings: Correlating with the palpable area there are lymph nodes noted measuring 0.9 x 1.4 x 0.6 cm and 0.8 x 1.5 x 0.5 cm with normal-appearing fatty fer and normal flow. IMPRESSION: Nonspecific prominent lymph nodes which may be reactive. Other etiologies not excluded. Follow-up recommended to assess stability or resolution. Clinically if there is concern for neoplasm correlation with breast ultrasound and mammogram/breast MRI recommended Reviewed, dictated and finalized at location P. ARCHITECT IMPRESSION: Nonspecific prominent lymph nodes which may be reactive. Other etio logies not excluded. Follow-up recommended to assess stability or resolution. C linically if there is concern for neoplasm correlation with breast ultrasound a nd mammogram/breast MRI recommended
--- OUTSIDE RECORDS SUMMARY | 2025-02-16 11:20 | XMS_ITS | Clinical Summary ---
Author Organization [facility] Address [address] [address] Care Team Providers Care Chief Lending Officer Name Role Phone Unknown, Provider Primary Care Provider Unavaila ble Source Comments [facility],non-owned Affiliates and Associated Physician Practices is amultiple site organization consisting of ambulatory clinics and hospital sitesin [place], [place], [place] and [place]. This disclosure is being madepursuant to the Care Everywhere program and may not contain all information available regarding this patient. Last updated 17.[facility] Allergies No known active allergies Medications * Be aware that medications may not be up to date on this document. Alwaysverify current medications with the patient. Vit-Fe Fumarate-FA ( Vitamins) 28-0.8 MG TABS Take 1 (one) tablet by mouth at bedtime 10/18/2024 Active ondansetron (Zofran) 4 MG tablet Take 1 (one) tablet by mouth every 6 hours as needed 12/07/2024 Active Encounters Date Type Department Care Team Description 01/26/2025 1:25 PM CDT - 01/26/2025 11:59 PM CDT Hospital Encounter Count includes the [facility] [address] [place] [address] Berta Abraham MD Discharge Disposition: Home or Self Care 01/26/2025 1:00 PM CDT - 01/26/2025 1:24 PM CDT Hospital Encounter Count includes the [facility] [address] [place] [address] Berta Abraham MD Discharge Disposition: Home or Self Care 01/23/2025 Telephone Count includes the [facility] [address] [place] [address] Keira Joseph Appointment from Last 3 Months Social History Tobacco Use Types Packs/Day Years Used Date Smoking Tobacco: Never Smokeless Tobacco: Never Tobacco Cessation:Counseling Given: Not Answered Alcohol Use Standard Drinks/Week Comments Not Currently 0 (1 standard drink = 0.6 oz pur e alcohol) Estimated Date of Delivery Comme nts Yes 06/07/2025 Based on Patient Reported Sex and Gender Information Value Date Recorded Sex Assigned at Not on file Legal Sex Female 7:09 AM CDT Gender Identity Not on file Sexual Orientation Not on file Last Filed Vital Signs Vital Sign Reading Time Taken Comments Blood Pressure 104/56 01/26/2025 2:18 PM CDT Pulse 89 01/26/2025 2:18 PM CDT Temperature - - Respiratory Rate - - Oxygen Saturation - - Inhaled Oxygen Concentration - - Weight 62.1 kg (137 lb) 01/26/2025 2:18 PM CDT Height - - Body Mass Index - - Plan of Treatment Health Maintenance Due Date Last Done Comments HIV SCREENING 12/11/2014 HPV VACCINE (1 - 3-dose series) 12/11/2014 CHLAMYDIA/GONORRHEA SCREENING 2015 HEPATITIS C SCREENING 12/07/2017 DTAP/TDAP/TD VACCINES (1 - Tdap) 12/11/2018 HEPATITIS B VACCINE (1 of 3 - 19+ 3-dose series) 12/11/2018 PAP SMEAR 12/11/2020 DEPRESSION SCREENING 04/06/2024 COVID-19 VACCINE (1 - 2023-2 5 season) 2024 INFLUENZA VACCINE (#1) 2024 OB-ONE HOUR GLUCOSE 03/01/2025 Respiratory Syncytial Virus (RSV) Vaccine Pt: or over 60 yrs (1 - Risk 1-dose series) 04/12/2025 ZOSTER VACCINE (1 of 2) 12/11/2049 HIB VACCINE Aged Out No longer eligi ble based on patient's age to complete this topic MENINGOCOCCAL (Group B) VACC INE SHARED DECISION-MAKING Aged Out No longer eligibl e based on patient's age to complete this topic MENINGOCOCCAL GROUPS A/C/Y/W VACCINE Aged Out No longer eligible b ased on patient's age to complete this topic PNEUMOCOCCAL VACCINE Aged Out No long er eligible based on patient's age to complete this topic Procedures Procedure Name Priority Date/Time Associated Diagnosis Comments SONOGRAM - COMPLETE Routine 01/26/2025 1 :29 PM CDT SGA (small for gestational age) (HCC) Depression affecting (HCC) Hx of migraines 21 weeks gestation of (HCC) from Last 3 Months Results * Sonogram - Complete (01/26/2025 1:29 PM CDT) Linked Results Indication ======== Small for dates Depression, unspecified no current medication Drug use complicating marijuana History ====== OB History 4. Para 1 [id number] 1. elective termination 2019. Details: 1st trimester 2. live 2022. Gest. age 38 w + 0 d. Details: Vaginal delivery, Suspected SGA (6lbs 12 oz), placental abruption, IOL; [place] 3. miscarriage 2023. Details: 1st trimester Lab Tests Test Date Result NIPT Low risk, Female Maternal Assessment Physical Exam Height 157 cm, 5 ft 2 in. Weight 62 kg, 137 lb. Initial weight 61 kg, 135 lb. BMI 25.06 kg/m . Initial BMI 24.69 kg/m . Weight gain 1 kg, 2 lb Method ====== Transabdominal and transvaginal ultrasound examination. View: Suboptimal view: limited by position ========= Velasquez . Number of fetuses: 1 Dating ====== Date Details Gest. age ABHINAV LMP 08/31/2024 21 w + 1 d 06/07/2025 U/S 01/26/2025 based upon AC, BPD, Femur, HC 20 w + 0 d 06/15/2025 Assigned dating based on the LMP, selected on 01/26/2025 21 w + 1 d 06/07/2025 General Evaluation Cardiac activity present. FHR 153 bpm. movements: visualized. Presentation: cephalic Placenta: Placental site: anterior Umbilical cord: Cord vessels: 3 vessel cord. Insertion site: suboptimal, normal insertion Amniotic fluid: Amount of AF: normal. Q1 3.2 cm Biometry BPD 45.0 mm 19w 4d 4% Hadlock HC 168.5 mm 19w 3d 1% Hadlock Cerebellum tr 19.5 mm 2% [place] Nuchal fold 4.0 mm AC 150.1 mm 20w 2d 17% Hadlock Femur 34.6 mm 20w 6d 32% Hadlock Humerus 33.2 mm 21w 2d 49% Bernabe HC / AC 1.12 -/- Hadlock Weight Calculation: EFW 352 g 14% Hadlock EFW (lb,oz) 0 lb 12 oz EFW by Hadlock (BPS-GY-RB-FL) Head / Face / Neck Biometry: CM 7.2 mm 94% Nicolaides appropriate Growth Overview Exam date GA BPD (mm) HC (mm) AC (mm) FL (mm) HL (mm) EFW (g) 01/26/2025 21w 1d 45 4% 168.5 1% 150.1 17% 34.6 32% 33.2 49% 352 14% Anatomy The following structures appear normal: Head / Neck Cranium. Lateral ventricles. Choroid plexus. Midline falx. Cavum septi pellucidi. Cerebellum. Cisterna magna. Thalami. Nuchal fold. Face Lips. Profile. Nose. Nasal bone. Orbits. Heart / Thorax Ductal arch view. Abdomen Cord insertion. Stomach. Kidneys. Bladder. Bowel. Genitals. Spine Cervical spine. Thoracic spine. Lumbar spine. Sacral spine. The following structures could not be adequately visualized: Heart / Thorax 4-chamber view. RVOT view. LVOT view. 3-vessel view. 4-exyuce-llcnjgq view. Situs. Aortic arch view. Bicaval view. Great vessels. Right lung. Left lung. Diaphragm. Extremities / Skeleton Arms. Hands. Legs. Feet. sex: female. Maternal Structures Cervix declined transvaginal ultrasound Right Ovary Normal Left Ovary Normal Impression ========= Single live intrauterine at 21w 1d The size is appropriate. The HC measures between -2 and -3 SD of the mean, not concerning for microcephaly. The amniotic fluid volume is normal. The transvaginal cervical length is declined transvaginal ultrasound. The placenta is anterior and is not a previa on trans abdominal scan. No major malformations were seen within the limitations of ultrasound. Comment ======== ultrasound alone cannot detect all structural, genetic, or functional , placental, or maternal abnormalities Follow-up ======== Follow up ultrasound in 3 weeks for growth and to complete anatomic survey. Patient plans this exam with primary OB. See separate MFM visit note. Coding ====== Diagnoses O36.5920: Maternal care for other known or suspected poor growth F32.A: Depression, unspecified O99.322: Drug use complicating Procedures 07644: US Preg Uterus Detailed [facility] Twined PACS Anatomical Region Laterality Modality Other 01/26/2025 1:29 PM CDT us Berta Abraham MD [facility] ORDERABLES Edited Result - Final from Last 3 Months Insurance [facility] Care Teams Chief Lending Officer Relationship Specialty Start Date End Date Unknown, Provider PCP - General 01/26/25
--- OUTSIDE RECORDS SUMMARY | 2025-02-16 11:22 | XMS_ITS | Patient Health Record ---
Author Organization [facility] Address [address] [place] [address] Care Team Providers Care Hogshead Liner Name Role Phone Papito Quispe Primary Care Provider [phone] Reason For Referral No Information Medications Medication SIG (Take, Route, Frequency, Duration) Notes Start Date End Date Status Bactrim DS 800-160 MG Tablet 1 (one) Oral bid for 3 days; Duration: 0 ; SourceRx: Bactrim DS 800-160 MG Oral Tablet; SourceStatus:Activ e 08/06/2020 Active Diflucan 150 MG Tablet 1 (one) Oral single dose; Duration: 0 ; SourceRx: Diflucan 150 MG Oral Tablet; SourceStatus:Activ e 08/06/2020 Active Social History Social History Additional Details Category Social Info Options Details Migrated Social History Migrated Social History Problem Title : Caffeine use, Problem Comment : Coffee, 1 serving / day [employer] [facility], Problem Status : Active,, Problem Title : Illicit drug use, Problem [facility], Problem Status : Active, Attribute Title : Uses marijuana,, Problem Title : Tobacco use, Problem Comment : Smokes lt; 1 pack of cigarettes per day [facility]/06[facility], Problem Status : Active, Attribute Title : Current every day smoker,, Problem Title : Exercise, Problem Comment : [facility]/06[facility], Problem Status : Active, Attribute Title : 4 x week,, Problem Title : Alcohol use, Problem Comment : Drinks wine [facility] 08/06/2020, Problem Status : Active, Attribute Title : Occasional alcohol use,, Problem Title : Highest Education Level Attained, Problem Comment : [facility], Problem Status : Active, Attribute Title : Some college, Problems Problem Type SNOMED Code ICD Code Onset Dates Problem Status W/U Status Risk Notes Problem Unspecified symptoms and signs involving the genitourinary system (R39.9) Active confirmed Problem Exposure to sexually transmissible disorder ([id number]) Contact with and (suspected) exposure to infections with a predominantly sexual mode of transmission (Z20.2) Active confirmed Problem BMI less than 20 (925377249) Body mass index (BMI) 19 or less, adult (Z68.1) Active confirmed Problem Title:Adult body mass index less than 19 Problem Depression Screening (560027491) Encounter for screening for depression (Z13.31) Active confirmed Problem Title:Screen ing for depression Plan Of Treatment No Information Medical (General) History Surgical History Surgery Date(Month/Year) Problem Title : No pertinent past surgical history, Problem Comment : [place] 08/06/2020, Problem Status : Active,
--- OUTSIDE RECORDS SUMMARY | 2025-02-16 11:22 | XMS_ITS | Data Portability ---
Author Organization [facility] , [facility] Address [address] [place] [address] Assessment No assessment recorded. Plan of Treatment Reminders Order Date Submit Date Provider Last Modified By Organization Details Last Modified Time Details Appointments OB RETURN EST 2024 01:30P M Jacqueline Benitez MD Not available Not available Not available Lab toxopla sma igg Ab, serum 2024 [address] [facility], [address] [facility], [address], [place], [address], 01/26/2025 12:32:50 parvovi flynn B19 igg+igm Ab, serum 2024 [address] [facility], [address] [facility], [address], [place], [address], 01/26/2025 12:32:51 cytomeg aloviru s (cmv) igg+igm Ab, serum 2024 [address] [facility], [address] [place], [address], 01/26/2025 12:32:48 CMP, serum or plasma 2024 [address] [facility], [address] [place], [address], 01/26/2025 12:32:49 bile acids, total, serum 2024 [address] [facility], [address] [place], [address], 01/26/2025 12:32:50 afp (alpha- fetopro tein) panel, materna l screen, serum - N/A 2024 025 [address] [facility], [address] [place], [address], 01/02/2025 14:47:57 hemoglo bin A1c, QN, blood 2024 025 QR [facility], [address] [place], [address], 11/29/2024 11:03:04 abo group + rh type, blood 2024 025 [address] [facility], [address] [place], [address], 11/30/2024 16:19:25 CBC w/ auto diff 2024 025 QR [facility], [address] [place], [address], 11/29/2024 12:10:33 CT + NG DNA, PCR, unspeci fied specime n 2024 025 QR [facility], [address] [place], [address], 11/29/2024 14:23:54 drug of abuse panel, urine 2024 025 QR [facility], [address] [place] [address], [address], 11/29/2024 11:28:51 obstetr ic screen + HIV, serum or blood 2024 025 [employer], [address] [place], [address], 11/29/2024 12:11:05 measles igg Ab, serum 2024 025 [address] [facility], [address] [place], [address], 11/30/2024 16:19:24 culture , urine 2024 025 [place] [facility], [address] [place], [address], 11/29/2024 23:09:27 varicel la-zost er igg Ab screen, serum 2024 025 [place] [facility], [address] [place], [address], 11/30/2024 16:19:23 antibod y screen, serum or plasma 2024 025 [place] [facility], [address] [place], [address], 11/30/2024 16:19:25 culture , urine 2024 025 [email or web address], [address] [place], [address], 10/25/2024 13:29:44 pregnan cy test, urine 2024 025 [facility], [address] [place], [address], 10/18/2024 11:00:01 Referral materna l & medicin e referra l - Please consult and evaluat e for SGA- EFW 7.5% at 20 wk anatomy scan. 2024 [facility], [address] [place], [address], 02/16/2025 04:06:25 Procedures None recorde d. Surgeries None recorde d. Imaging US, obstetr ic, 2nd trimest er 2024 025 [place] Not available 01/22/2025 17:20:38 US, obstetr ic, transva ginal 2024 025 Not available 01/19/2025 12:45:49 US, obstetr ic, transva ginal 2024 025 [email or web address] Not available 11/17/2024 13:50:22 US, transva ginal 2024 025 [email or web address] Not available 10/18/2024 16:41:31 Medication Orders ondanse andrew HCl 4 [address] tablet [address] [facility] [address], [address], [place], [address], 10/18/2024 11:00:12 Reglan 10 mg tablet 2024 025 [email or web address] [facility] [address], [address], [place], [address], 11/28/2024 16:47:14 Prenata l 28 mg iron-80 [address] mcg tablet [address] [facility] [address], [address], [place], [address], 10/18/2024 11:00:09 Patient TargetsNo targets recorded. Patient InstructionsNo instructions recorded. Reason for Referral Maternal & Medicine Re ferral for Small for gestational age fetus Please consult and evaluate for SGA- EFW 7.5% at 20 wk anatomy scan. Referring Physician: Nicole Jain, DIRECTOR MEDICAL WRITING, Encounter Date: 01/19/2025 Results Created Date Observation Date Name Description Value Unit Range Abnormal Flag Note LastModifiedBy Organization Detail LastModifiedTime 12/01/1911/30/2024 VARIC AQUILINO ZOSTE R VIRUS ANTIB BHAKTI (IGG) varicella zoster virus antibody (IgG) 1.29 S/co normal Signa l to Cut-o ff S/CO Inter preta tion ----- ---- ----- ----- ----- ----- -- <1.00 Negat caitlin - Antib bhakti not detec ignacio > or = 1.00 Posit caitlin - Antib bhakti detec ignacio A posit caitlin resul t indic ates that the patie nt has antib bhakti to VZV but does not diffe renti ate betwe en an activ e or past infec tion. The clini ivon diagn osis must be inter prete d in conju nctio n with the clini ivon signs and sympt oms of the patie nt. This assay relia amirah measu res immun ity due to previ ous infec tion but may not be sensi tive enoug h to detec t antib odies induc ed by vacci natio n. Thus, a negat caitlin resul t in a vacci nated indiv idual does not neces saril y indic ate susce ptibi lity to VZV infec tion. A more sensi tive test for vacci natio n-ind uced immun ity is Varic aquilino Zoste r Virus Antib bhakti Immun ity Scree n, ACIF. Not Available [facility] [address] [address] [place], [address], 11/30/2024 16:19:23 12/01/19 25 11/30/2024 MEASL ES AB (IGG) , IMMUN E STATU S measles Ab (IgG), immune status 31.30 AU/mL normal AU/mL Inter preta tion ----- ----- ----- ---- <13.5 0 Not consi stent with immun ity 13.50 -16.4 9 Equiv ocal >16.4 9 Consi stent with immun ity The prese nce of measl es IgG sugge sts immun izati on or past or curre nt infec tion with measl es virus . For addit ional infor lane webb e refer to http: //napoleon matt.Que stDia gnost ics.c om/fa q/FAQ 162 (This link is being provi ded for infor raghu frederick/ educa siddharth l purpo ses only. ) Not Available [facility] [address] [place], [address], 11/30/2024 16:19:24 12/01/1911/30/2024 ANTIB BHAKTI SCREE N, RBC W/REF L ID, TITER AND AG antibody screen, RBC w/refl id, titer and Ag NO ANTIBO DIES DETECT ED normal Refer ence range No antib odies detec ignacio This assay is a scree jaime test for the detec tion of red blood cell antib odies . The test is not to be used for pretr ansfu zelalem scree jaime or for the medic al manag ement of an alloi mmuni zed pregn cameron. Not Available [facility] [address] [address] [place], [address], 11/30/2024 16:19:25 12/01/1911/30/2024 ABO GROUP AND RH TYPE ABO group A Not Available [facility] [address] [place], [address], 11/30/2024 16:19:25 12/01/1911/30/2024 ABO GROUP AND RH TYPE Rh type RH(D) POSITI VE For addit ional infor lane ewbb e refer to http: //[facility] wes Wyman stDia gnost ics.c om/fa q/FAQ 111 (This link is being provi ded for infor raghu frederick/ educa siddharth l purpo ses only. ) Not Available [facility] [address] [address] [place], [address], 11/30/2024 16:19:25 12/01/1911/30/2024 CULTU RE, URINE , ROUTI NE culture, urine, routine CULTU RE, URINE , ROUTI NE Micro Numbe r: [id number] Test Statu s: Final Speci men Sourc e: Not given Speci men Quali ty: Inade quate Resul t: Test not perfo rmed. Impro per speci men submi tted. Pleas e submi t speci mens for urine cultu re in a mercer top or UriSp onge urine trans port tube. NO COLLE CTION DATE RECEI ROME. WE HAVE USED THE DATE THE SPECI MEN WAS RECEI ROME BY THIS LABOR ATORY THE COLLE CTION DATE. IF THIS IS INCOR RECT, PLEAS E CONTA CT CLIEN T SERVI JOSE. PHONE BRIGID R: [phone] Not Available [facility] [address] [place], [address], 11/30/2024 16:19:26 01/27/2001/26/2025 CYTOM EGALO VIRUS ANTIB ODIES (IGG, IGM) cytomegalovi flynn antibody (IgG) 1.40 U/mL high U/mL Inter preta tion ----- ----- ----- ---- <0.60 Negat caitlin 0.60- 0.69 Equiv ocal > or = 0.70 Posit caitlin A posit caitlin resul t indic ates that the patie nt has antib bhakti to CMV. It does not diffe renti ate betwe en an activ e or past infec tion. Not Available [facility] [address] [place], [address], 01/26/2025 12:32:48 01/27/2001/26/2025 CYTOM EGALO VIRUS ANTIB ODIES (IGG, IGM) cytomegalovi flynn antibody (IgM) <30.00 AU/mL normal AU/mL Inter preta tion ----- ----- ----- ---- <30.0 0 No Antib bhakti Detec ignacio 30.00 -34.9 9 Equiv ocal > or = 35.00 Antib bhakti Detec ignacio Resul ts from any one IgM assay shoul d not be used as a sole deter minan t of a curre nt or recen t infec tion. Becau se an IgM test can yield false posit caitlin resul ts and low level IgM antib bhakti may persi st for more than 12 month s post infec tion, relia nce on a singl e test resul t could be misle ading . Acute infec tion is best diagn osed by demcheli mujicat ing the conve rsion of IgG from negat caitlin to posit caitlin. If an acute infec tion is suspe cted, consi carline obtai jaime a new speci men and submi t for both IgG and IgM testi ng in two or more weeks . Not Available [address], [address], 01/26/2025 12:32:48 01/27/2001/26/2025 COMPR EHENS CAITLIN METAB OLIC PANEL glucose 71 mg/dL 65-99 normal Fasti ng refer ence inter wendi Not Available [address], [address], 01/26/2025 12:32:49 01/27/2001/26/2025 COMPR EHENS CAITLIN METAB OLIC PANEL urea nitrogen (BUN) 6 mg/dL 7-25 low Not Available [address], [address], 01/26/2025 12:32:49 01/27/2001/26/2025 COMPR EHENS CAITLIN METAB OLIC PANEL creatinine 0.43 mg/dL 0.50-0 .96 low Not Available [address], [address], 01/26/2025 12:32:49 01/27/2001/26/2025 COMPR EHENS CAITLIN METAB OLIC PANEL eGFR 138 mL/mi n/1.7 3m2 > or = 60 normal Not Available [address], [address], 01/26/2025 12:32:49 01/27/2001/26/2025 COMPR EHENS CAITLIN METAB OLIC PANEL BUN/creatini ne ratio 14 (calc ) 6-22 normal Not Available [address], [address], 01/26/2025 12:32:49 01/27/20 25 01/26/2025 COMPR EHENS CAITLIN METAB OLIC PANEL sodium 138 mmol/ L 135-14 6 normal Not Available [address], [address], 01/26/2025 12:32:49 01/27/2001/26/2025 COMPR EHENS CAITLIN METAB OLIC PANEL potassium 4.0 mmol/ L 3.5-5. 3 normal Not Available [address], [address], 01/26/2025 12:32:49 01/27/2001/26/2025 COMPR EHENS CAITLIN METAB OLIC PANEL chloride 105 mmol/ L 98-110 normal Not Available [address], [address], 01/26/2025 12:32:49 01/27/2001/26/2025 COMPR EHENS CAITLIN METAB OLIC PANEL carbon dioxide 26 mmol/ L 20-32 normal Not Available [address], [address], 01/26/2025 12:32:49 01/27/2001/26/2025 COMPR EHENS CAITLIN METAB OLIC PANEL calcium 8.6 mg/dL 8.6-10 .2 normal Not Available [address], [address], 01/26/2025 12:32:49 01/27/2001/26/2025 COMPR EHENS CAITLIN METAB OLIC PANEL protein, total 6.2 g/dL 6.1-8. 1 normal Not Available [address], [address], 01/26/2025 12:32:49 01/27/2001/26/2025 COMPR EHENS CATILIN METAB OLIC PANEL albumin 4.1 g/dL 3.6-5. 1 normal Not Available [address], [address], 01/26/2025 12:32:49 01/27/20 25 01/26/2025 COMPR EHENS CAITLIN METAB OLIC PANEL globulin 2.1 g/dL_ (calc ) 1.9-3. 7 normal Not Available [address], [address], 01/26/2025 12:32:49 01/27/20 25 01/26/2025 COMPR EHENS CAITLIN METAB OLIC PANEL albumin/glob ulin ratio 2.0 (calc ) 1.0-2. 5 normal Not Available [address], [address], 01/26/2025 12:32:49 01/27/2001/26/2025 COMPR EHENS CAITLIN METAB OLIC PANEL bilirubin, total 0.4 mg/dL 0.2-1. 2 normal Not Available [address], [address], 01/26/2025 12:32:49 01/27/20 25 01/26/2025 COMPR EHENS CAITLIN METAB OLIC PANEL alkaline phosphatase 52 U/L 31-125 normal Not Available [address], [address], 01/26/2025 12:32:49 01/27/20 25 01/26/2025 COMPR EHENS CAITLIN METAB OLIC PANEL AST 10 U/L 10-30 normal Not Available [address], [address], 01/26/2025 12:32:49 01/27/20 25 01/26/2025 COMPR EHENS CAITLIN METAB OLIC PANEL ALT 8 U/L 6-29 normal Not Available [address], [address], 01/26/2025 12:32:49 01/27/20 25 01/26/2025 BILE ACIDS , TOTAL PREGN CAMERON, ENZYM ATIC bile acids, total, enzymatic 4 umol/ L 0-10 Not Available [address] [place], [address], 01/26/2025 12:32:50 01/27/2001/26/2025 TOXOP LASMA ANTIB BHAKTI (IGG) toxoplasma antibody (IgG) <7.20 IU/mL normal IU/mL Inter preta tion ----- - ----- ----- ---- <7.20 Negat caitlin 7.20- 8.79 Equiv ocal >8.79 Posit caitlin Not Available [facility] [address], [address], 01/26/2025 12:32:50 01/27/2001/26/2025 PARVO VIRUS B19 ANTIB ODIES (IGG, IGM) parvovirus B19 antibody (IgG) 0.2 normal REFER ENCE RANGE : <0.9 INTER PRETI VE CRITE BORIS: <0.9 Negat caitlin 0.9 - 1.1 Equiv ocal >1.1 Posit caitlin IgG persi sts for years and provi ora life- long immun ity. To diagn ose curre nt infec tion, consi carline Parvo virus B19 DNA, PCR. Not Available [address], [address], 01/26/2025 12:32:51 01/27/2001/26/2025 PARVO VIRUS B19 ANTIB ODIES (IGG, IGM) parvovirus B19 antibody (IgM) 0.2 normal REFER ENCE RANGE : <0.9 INTER PRETI VE CRITE BORIS: <0.9 Negat caitlin 0.9 - 1.1 Equiv ocal >1.1 Posit caitlin Resul ts from any one IgM assay shoul d not be used as a sole deter minan t of a curre nt or recen t infec tion. Becau se IgM tests can yield false posit caitlin resul ts and low level s of IgM antib bhakti may persi st for month s post infec tion, relia nce on a singl e test resul t could be misle ading . If an acute infec tion is suspe cted, consi carline obtai jaime a new speci men and submi t for both IgG and IgM testi ng in two or more weeks . To diagn ose curre nt infec tion, consi carline Parvo virus B19 DNA, PCR. NO COLLE CTION DATE RECEI ROME. WE HAVE USED THE DATE THE SPECI MEN WAS RECEI ROME BY THIS LABOR ATORY THE COLLE CTION DATE. IF THIS IS INCOR RECT, PLEAS E CONTA CT CLIEN T SERVI JOSE. PHONE NUMBE R: [phone] Not Available [facility] [address] [place], [address], 01/26/2025 12:32:51 10/18/1910/17/2024 pregn cameron test, urine HCG positi ve Not Available [facility] [address] [place], [address], 10/15/2024 23:03:27 11/29/19 25 11/29/2024 HEMOG LOBIN A1C hemoglobin A1C 4.8 % <5.7 normal The refer ence range for HbA1c is indic ated in the table below . Sugge sted Diagn osis =6.5% Consi stent with diabe vipul 5.7 6.4% Consi stent with incre ased risk for diabe vipul (pred iabet ic) <5.7% Consi stent with the absen ce of diabe vipul Not Available [facility] [address] [place], [address], 11/29/2024 11:03:04 11/29/19 25 11/29/2024 DRUG ABUSE PANEL 7 W/CON FIRM amphetamines Negati ve negati ve normal Not Available [employer] [address] [place], [address], 11/29/2024 11:28:51 11/29/19 25 11/29/2024 DRUG ABUSE PANEL 7 W/CON FIRM barbiturates Negati ve negati ve normal Not Available [employer] [address] [place], [address], 11/29/2024 11:28:51 11/29/1911/29/2024 DRUG ABUSE PANEL 7 W/CON FIRM benzodiazepi kacie Negati ve negati ve normal Not Available [facility] [address] [place], [address], 11/29/2024 11:28:51 11/29/1911/29/2024 DRUG ABUSE PANEL 7 W/CON FIRM cocaine metabolites Negati ve negati ve normal Not Available [facility] [address] [place], [address], 11/29/2024 11:28:51 11/29/19 25 11/29/2024 DRUG ABUSE PANEL 7 W/CON FIRM cannabinoids Presum ptive Positi ve negati ve abnormal Not Available [facility] [address] [place], [address], 11/29/2024 11:28:51 11/29/19 25 11/29/2024 DRUG ABUSE PANEL 7 W/CON FIRM methadone Negati ve negati ve normal Not Available [facility] [address] [place], [address], 11/29/2024 11:28:51 11/29/19 25 11/29/2024 DRUG ABUSE PANEL 7 W/CON FIRM opiates Negati ve negati ve normal Not Available [facility] [address] [place], [address], 11/29/2024 11:28:51 11/29/1911/29/2024 DRUG ABUSE PANEL 7 W/CON FIRM creatinine, urine 181 mg/dL 20 - 275 normal Not Available [facility] [address] [place], [address], 11/29/2024 11:28:51 11/29/19 25 11/29/2024 CBC (INCL UDES DIFF/ PLT) WBC 6.0 thous and/u L 4.0 - 9.8 normal Not Available [facility] [address] [place], [address], 11/29/2024 12:10:33 11/29/1911/29/2024 CBC (INCL UDES DIFF/ PLT) RBC 4.2 rashard on/uL 3.9 - 4.9 normal Not Available [address], [address], 11/29/2024 12:10:33 11/29/1911/29/2024 CBC (INCL UDES DIFF/ PLT) hemoglobin 12.3 g/dL 11.8 - 14.8 normal Not Available [address], [address], 11/29/2024 12:10:33 11/29/1911/29/2024 CBC (INCL UDES DIFF/ PLT) hematocrit 36.8 % 35.5 - 44.0 normal Not Available [address], [address], 11/29/2024 12:10:33 11/29/1911/29/2024 CBC (INCL UDES DIFF/ PLT) MCV 87.4 fL 82.0 - 99.0 normal Not Available [address], [address], 11/29/2024 12:10:33 11/29/1911/29/2024 CBC (INCL UDES DIFF/ PLT) MCH 29.2 pg 27.2 - 32.6 normal Not Available [address], [address], 11/29/2024 12:10:33 11/29/1911/29/2024 CBC (INCL UDES DIFF/ PLT) MCHC 33.4 g/dL 31.5 - 35.5 normal Not Available [address], [address], 11/29/2024 12:10:33 11/29/1911/29/2024 CBC (INCL UDES DIFF/ PLT) RDW-CV 12.8 % 11.5 - 14.5 normal Not Available [address], [address], 11/29/2024 12:10:33 11/29/1911/29/2024 CBC (INCL UDES DIFF/ PLT) platelet 169 thous and/u L 140 - 350 normal Not Available [address], [address], 11/29/2024 12:10:33 11/29/1911/29/2024 CBC (INCL UDES DIFF/ PLT) MPV 11.0 fL 9.3 - 12.4 normal Not Available [address], [address], 11/29/2024 12:10:33 11/29/1911/29/2024 CBC (INCL UDES DIFF/ PLT) absolute neutrophil 4.49 thous and/u L 1.90 - 7.00 normal Not Available [address], [address], 11/29/2024 12:10:33 11/29/1911/29/2024 CBC (INCL UDES DIFF/ PLT) absolute lymphocyte 1.05 thous and/u L 0.70 - 4.50 normal Not Available [address], [address], 11/29/2024 12:10:33 11/29/1911/29/2024 CBC (INCL UDES DIFF/ PLT) absolute monocyte 0.32 thous and/u L 0.10 - 1.30 normal Not Available [address], [address], 11/29/2024 12:10:33 11/29/1911/29/2024 CBC (INCL UDES DIFF/ PLT) absolute eosinophil 0.09 thous and/u L <0.70 normal Not Available [address], [address], 11/29/2024 12:10:33 11/29/19 25 11/29/2024 CBC (INCL UDES DIFF/ PLT) absolute basophil 0.04 thous and/u L <0.20 normal Not Available [address], [address], 11/29/2024 12:10:33 11/29/19 25 11/29/2024 CBC (INCL UDES DIFF/ PLT) absolute immature granulocyte 0.03 thous and/u L <0.03 normal Not Available [address], [address], 11/29/2024 12:10:33 11/29/19 25 11/29/2024 OB PANEL - STD BLOOD WORK hep BS Ag Non-Re active non-re active normal Not Available [address], [address], 11/29/2024 12:11:05 11/29/1911/29/2024 OB PANEL - STD BLOOD WORK hep C Ab Non-Re active non-re active normal Not Available [address], [address], 11/29/2024 12:11:05 11/29/1911/29/2024 OB PANEL - STD BLOOD WORK HIV 1/2 Ag/Ab Non-Re active non-re active normal Not Available [address], [address], 11/29/2024 12:11:05 11/29/1911/29/2024 OB PANEL - STD BLOOD WORK syphilis Ab Non-Re active non-re active normal Not Available [address], [address], 11/29/2024 12:11:05 11/29/1911/29/2024 OB PANEL - STD BLOOD WORK rubella Ab IgG 18.3 IU/mL normal INTER PRETI VE INFOR MATIO N: Rubel la Antib bhakti, IgG. < 5.0 IU/mL ..... ..... . Not consi stent with immun ity 5.0 - 9.9 IU/mL ..... . Equiv ocal: Indet ermin ate-R epeat testi ng in 10-14 days may be helpf ul. > or = 10.0 IU/mL ... Consi stent with immun ity The prese nce of Rubel la IgG antib bhakti sugge st respo nse to immun izati on or prior /curr ent expos ure to the Rubel la virus . Not Available [facility] [address] [place], [address], 11/29/2024 12:11:05 11/29/1911/29/2024 CT/NG chlamydia trachomatis CT neg negati ve normal This repor t is inten ded for us in clini ivon monit oring and manag ement of patie nts. It is not inten ded for use in medic al-le gal appli catio n. Not Available [facility] [address] [place] [address], [address], 11/29/2024 14:23:54 11/29/1911/29/2024 CT/NG neisseria gonorrhoeae GC neg negati ve normal This repor t is inten ded for us in clini ivon monit oring and manag ement of patie nts. It is not inten ded for use in medic al-le gal appli catio n. Not Available [facility] [address] [place] [address], [address], 11/29/2024 14:23:54 11/29/1911/29/2024 CLIEN T EDUCA TION TRACK ING client education tracking The Requi sitio n we recei rome did not inclu de a [facility] accou nt numbe r. To preve nt delay s in testi ng and proce ssing of your order s pleas e provi de the follo wing infor matio n with every order submi tted: [facility] accou nt numbe r and accou nt name Clien t addre ss Clien t phone and fax numbe r NPI numbe r of order ing physi esme along with the physi esme name. Not Available [facility] [address], [place], [address], 11/29/2024 23:09:26 11/29/1911/29/2024 CHLAM YDIA/ N. GONOR RHOEA E RNA, TMA, UROGE NITAL chlamydia trachomatis RNA, tma, urogenital TNP TEST NOT PERFO RMED. No suita ble speci men recei rome for testi ng. Pleas e resub meek order with prope r Aptim a trans port tube. Test detai ls can be found at testd irect ory.q uestd iagno Eventap Not Available [facility] [address], [place], [address], 11/29/2024 23:09:27 11/29/1911/29/2024 CULTU RE, URINE , ROUTI NE culture, urine, routine SEE NOTE CULTU RE, URINE , ROUTI NE Micro Numbe r: [id number] Test Statu s: Final Speci men Sourc e: Urine Speci men Quali ty: Adequ ate Resul t: Mixed genit al yogesh isola ignacio. These super ficia l bacte boris are not indic ative of a urina ry tract infec tion. No furth er organ ism ident ifica tion is warra nted on this speci men. If clini selma indic ated, recol lect clean -catc h, mid-s tream urine and trans mandy immed iatel y to Urine Cultu re Trans port Tube. We recei rome a prese rved urine cultu re trans port tube with eithe r no order indic ated or a sourc e which is inapp ropri ate for the test reque sted. A urine cultu re was perfo rmed. If this is not what you inten ded to order , pleas e conta ct your local clien t servi ce repre senta tive immed iatel y so that we can adjus t our murali ng appro priat martina. You may also inqui re about alter nativ e or addit ional testi ng. Not Available [facility] [address], [place], [address], 11/29/2024 23:09:27 11/30/1911/29/2024 CHROM OSOME S 13, 18, 21 + SEX CHROM OSOME ALEN SIS chromosomes 13, 18, 21 + sex chromosome analysis Negati ve normal See PDF for compl ete resul ts. Overa ll Resul t: Negat caitlin Negat caitlin for all order ed condi tions Clini ivon Notes : * The resid ual risks provi ded repre sent the remai jaime [facility] e that the pregn cameron is affec ignacio with the indic ated chrom osome aneup loidy in view of a negat caitlin resul t. * This is a scree jaime test; there fore, false posit caitlin and false negat caitlin resul ts can occur . No irrev ersib le decis ion shoul d be made based on these findi ngs alone . Clini ivon corre latio n with ultra sound findi ngs and histo ry is indic ated. If defin itive diagn osis is shameka ed, chori onic villu s sampl ing or amnio cente sis is neces nita. fract ion: > 30.0% - fract ion is one compo nent of the algor ithm used and is combi [place] with other quali ty metri cs to deter mine the aneup loidy scree jaime resul t. Not Available [facility] [address], [place], [address], 12/03/2024 23:26:42 12/01/1911/30/2024 AWA MENTA L (CF + SMA) [871] fundamental (CF + sma) [871] Negati ve normal See PDF for compl ete resul ts. Overa ll Resul t: Negat caitlin No disea se-ca using mutat ions detec ignacio. Not Available [facility] [address], [place], [address], 12/08/2024 09:19:14 12/30/1901/02/2025 MATER NAL SERUM AFP interpretati on: Scree n negat caitlin for open NTD. Not Available [facility] [address] [address] [place], [address], 01/02/2025 14:47:57 12/30/1901/02/2025 MATER NAL SERUM AFP risk for ontd <1 IN 5000 Not Available [facility] [address] [address] [place], [address], 01/02/2025 14:47:57 12/30/1901/02/2025 MATER NAL SERUM AFP AFP, serum 51.1 NG/mL Not Available [facility] [address] [address] [place], [address], 01/02/2025 14:47:57 12/30/1901/02/2025 MATER NAL SERUM AFP AFP MOM 1.20 Not Available [facility] [address] [address] [place], [address], 01/02/2025 14:47:57 12/30/1901/02/2025 MATER NAL SERUM AFP comments: This patie nt's ABHINAV (pete mated date of william davis) was used to calcu late the gesta siddharth l age. The AFP test resul t indic ates that this patie nt is scree n negat caitlin for open NTD. It shoul d be noted that ron l test resul ts can never guara ntee the of a ron l baby and that 2-3% of [facility] rns have some type of physi ivon or menta l defec t, many of which are undet ectab le throu gh any known prena elma diagn ostic techn ique. Not Available [facility] [address] [address] [place], [address], 01/02/2025 14:47:57 12/30/1901/02/2025 MATER NAL SERUM AFP comment This is a scree jaime test, not a diagn ostic test. This risk asses sment repor t is based in part on demog raphi c data provi ded by the order ing physi esme. Pleas e notif y the labor atory promp tly if any data are incor rect. For radha tance with recal culat ions, pleas e call your local [facility] . For radha tance with inter preta tion of these resul ts, pleas e conta ct your Local [facility] kiya ic couns elor or call [phone] INFO( [phone]). Inter preti ve Cutof fs Scree n Posit caitlin for Open NTD: > or = 2.50 adjus ignacio MOM > or = 1.90 adjus ignacio MOM for insul in-de pende nt diabe tics > or = 4.00 adjus ignacio MOM for twins > or = 3.50 adjus ignacio MOM for twins insul in-de pende nt diabe tics > or = 4.50 adjus ignacio MOM for tripl ets For addit ional infor lane webb e refer to http: //[facility] wes matt.zhen stdia gnost ics.c om/fa q/FAQ 74v1 (This link is being provi ded for infor raghu frederick/ educa siddharth l purpo ses only. ) Not Available [facility] [address] [place], [address], 01/02/2025 14:47:57 12/30/1901/02/2025 MATER NAL SERUM AFP calc'd gestational age 17.1 weeks Not Available [facility] [address] [address] [place], [address], 01/02/2025 14:47:57 12/30/1901/02/2025 MATER NAL SERUM AFP maternal weight 133 lbs Not Available [facility] [address] [place], [address], 01/02/2025 14:47:57 12/30/1901/02/2025 MATER NAL SERUM AFP est'd date of delivery 2025 Not Available [facility] [address] [place], [address], 01/02/2025 14:47:57 12/30/19 25 01/02/2025 MATER NAL SERUM AFP abhinav determined by LMP Not Available [address], [address], 01/02/2025 14:47:57 12/30/1901/02/2025 MATER NAL SERUM AFP mother's ethnic origin CAUCAS WALTER Not Available [address], [address], 01/02/2025 14:47:57 12/30/19 25 01/02/2025 MATER NAL SERUM AFP number of fetuses 1 Not Available [address], [address], 01/02/2025 14:47:57 12/30/1901/02/2025 MATER NAL SERUM AFP insulin depend diabetic NO Not Available [address], [address], 01/02/2025 14:47:57 12/30/1901/02/2025 MATER NAL SERUM AFP repeat specimen NO Not Available [address], [address], 01/02/2025 14:47:57 12/30/1901/02/2025 MATER NAL SERUM AFP Hx of neural tube defects NO Not Available [address], [address], 01/02/2025 14:47:57 12/30/19 25 01/02/2025 MATER NAL SERUM AFP prev down synd NO Not Available [address], [address], 01/02/2025 14:47:57 12/30/19 25 01/02/2025 MATER NAL SERUM AFP donor egg NO Not Available [address], [address], 01/02/2025 14:47:57 12/30/19 25 01/02/2025 MATER NAL SERUM AFP donor age: egg retrieval NOT GIVEN Not Available [facility] [address] [address] , [place], [address], 01/02/2025 14:47:57 10/18/19 25 10/17/2024 US, trans vagin al No observ ation record ed. [email or web address] Theodora [address], [place], [address], 10/18/2024 11:53:36 10/28/19 25 10/17/2024 US, obste tric, bioph ysica l profi le No observ ation record ed. [address], [place], [address], 10/31/2024 08:09:16 11/01/19 25 10/31/2024 US, obste tric, trans vagin al No observ ation record ed. [email or web address] Theodora [address], [place], [address], 11/02/2024 07:08:37 01/23/20 25 01/19/2025 US, obste tric, 2nd trime ster No observ ation record ed. [email or web address] Theodora [address], [place], [address], 01/22/2025 19:05:55 01/28/20 25 01/26/2025 imagi ng/di agnos tic resul t No observ ation record ed. [email or web address] [facility] [address] [place] [address], [address], 02/02/2025 21:38:42 Result Notes None recorded. Problems Name Problem SNOMED Code Status Onset Date Resolution Date Notes Provider Name and Address Organization Details Recorded Time 89827122 Active 2024 Leta Gillis null, [facility] 08/22/202 5 17:05:26 Past history of placental abruption 448337015 Active 2024 Placental abruption during labor GAGANDEEP BRUNO [address] [place], [address], [facility] [employer] IV 5 15:41:50 Family history of Spina bifida 629030366 Active 2024 FOB sister with Spina Bifida-MSA FP Neg NICOLE JAIN, FERNANDO [address] [place], [address], [facility] [employer] 5 08:30:38 Problem Notes None recorded. Procedures Surgical History Date Name Laterality Status Provider Name and Address Organization Details Recorded Time 01/18/2023 Date of Last Pap Smear [facility] [employer] 10/31/2024 13:02:27 Imaging Results None recorded. Procedure Notes None recorded. Medical Equipment None Reported. Allergies No known drug allergies Medications Name Sig Start Date Stop Date Status Note LastModified by Organization Details LastModified Time amoxicillin 500 mg capsule TAKE 1 CAPSULE BY MOUTH TWICE DAILY FOR 10 DAYS 11/28 completed Not Available Not Available Not Available ondansetron HCl 4 mg tablet TAKE 1 TABLET BY MOUTH EVERY 6 HOURS NEEDED active Not Available Not Available No t Available Reglan 10 mg tablet Take 1 tablet every 6 hours by oral route. 11/28 completed Not Available Not Available Not Available triamcinolo ne acetonide 0.1 % topical cream APPLY A THIN LAYER OF CREAM EXTERNALL Y TO AFFECTED AREA TWICE DAILY active Not Available Not Available No t Available amoxicillin 875 mg tablet TAKE 1 TABLET BY MOUTH TWICE DAILY FOR 10 DAYS 11/28 completed Not Available Not Available Not Available clindamycin 1 % topical gel APPLY A THIN LAYER TO THE AFFECTED AREA TOPICALLY 2 TIMES PER DAY 10/17 completed Not Available Not Available Not Available triamcinolo ne acetonide 0.1 % topical ointment APPLY TO AFFECTED AREA THREE TIMES DAILY FOR 5 DAYS 12/29 completed Not Available Not Available Not Available hydroxyzine HCl 25 mg tablet 11/28 completed Not Available Not Available Not Available clotrimazol e 1 % topical cream APPLY CREAM TOPICALLY TO AFFECTED AND SURROUNDI NG AREAS TWICE DAILY IN THE MORNING AND IN THE EVENING active Not Available Not Available No t Available NuvaRing 0.12 mg-0.015 mg/24 hr vaginal Insert 1 vaginal ring every month by vaginal route for 21 days. 10/17 completed Not Available Not Available Not Available cholecalcif luli (vitamin D3) 1,250 mcg (50,000 unit) capsule TAKE 1 CAPSULE BY MOUTH ONCE A WEEK 10/17 completed Not Available Not Available Not Available 28 mg iron-800 mcg tablet TAKE 1 TABLET BY MOUTH ONCE DAILY AT BEDTIME active Not Available Not Available No t Available clindamycin 1.2 %-benzoyl peroxide 2.5 % topical gel with pump APPLY A PEA-SIZED AMOUNT TOPICALLY ONCE DAILY TO COVER AREAS OF FACE WITH THIN LAYER 10/17 completed Not Available Not Available Not Available Vitals Date Recorded Body height Body mass index (BMI) Body weight Systolic And Diastolic Provider Name and Address Organization Details Last Updated DateTime 10/17/2024 157.48 cm 24.9 kg/m2 86260.56 g 106/66 mm[Hg] Daylin Newman [facility] 10/17/2024 16:19:03 Date Recorded Body height Body mass index (BMI) Body weight Systolic And Diastolic Provider Name and Address Organization Details Last Updated DateTime 10/31/2024 157.48 cm 24.4 kg/m2 75151.22 g 110/66 mm[Hg] [facility] IV 10/31/2024 13:01:31 Date Recorded Body height Body mass index (BMI) Body weight Systolic And Diastolic Provider Name and Address Organization Details Last Updated DateTime 11/28/2024 157.48 cm 24.1 kg/m2 38031.76 g 110/60 mm[Hg] Mariam Brown [facility] 11/28/2024 10:41:25 Date Recorded Body height Body weight Systolic And Diastolic Provider Name and Address Organization Details Last Updated DateTime 12/29/2024 157.48 cm 06521.6591 06 g 110/60 mm[Hg] [facility] 12/29/2024 10:41:00 Date Recorded Body height Body mass index (BMI) Body weight Systolic And Diastolic Provider Name and Address Organization Details Last Updated DateTime 01/19/2025 157.48 cm 24.7 kg/m2 04294.97 g 100/60 mm[Hg] Leta Gillis [facility] [employer] [facility] 01/19/2025 11:33:25 Social History Question Answer Notes LastModified by Organizat VEEDIMS Details LastModified Time Tobacco Smoking Status Never Smoker Daylin Newman null, [facility] [employer] [facility] 12/23/2023 11:21:37 If You Are , What Was Your Level Of Alcohol Consumption Prior To ? Occasional [email or web address] Information not available 12/23/2023 How Many Years Have You Consumed Alcohol? 3 [email or web address] Information not available 12/23/2023 Are You Blind Or Do You Have Difficulty Seeing? No [email or web address] Information not available 12/23/2023 Are You Deaf Or Do You Have Serious Difficulty Hearing? No [email or web address] Information not available 12/23/2023 What Type Of Diet Are You Following? REGULAR [email or web address] Information not available 12/23/2023 Which Illicit Or Recreational Drugs Have You Used? Marijuana [email or web address] Information not available 12/23/2023 How Many Children Do You Have? 1 [email or web address] Information not available 12/23/2023 What Is Your Relationship Status? Single [email or web address] Information not available 10/31/2024 Are You Sexually Active? Yes [email or web address] Information not available 12/23/2023 Sex: Unknown Functional Status Question Answer Note LastModified by Organizat ion Details LastModified Time Do you use any illicit or recreational drugs? Yes Information not available 12/23/2023 What is your level of alcohol consumption? Occasional [email or web address] Information not available 12/23/2023 Are you currently employed? No [email or web address] Information not available 12/23/2023 What is your exercise level? Occasional [email or web address] Information not available 12/23/2023 Mental Status None recorded. Family History Relationship Description Onset Age of this Age Resolved Age Notes LastModified by Organization Details LastModified Time Mother Irritable bowel syndrome [email or web address] Not available 12/22 11:21:36 Mother Endometriosi s (clinical) [email or web address] Not available 11:21:36 Mother Malignant neoplasm of breast [email or web address] Not available 12/22 11:21:36 Mother Malignant neoplastic disease [email or web address] Not available 12/22 11:21:36 Mother Hypertensive disorder [email or web address] Not available 12/22 11:21:36 Mother Uterine leiomyoma [email or web address] Not available 12/22 11:21:36 Maternal Grandmother Diabetes mellitus [email or web address] Not available 12/22 11:21:36 Father Irritable bowel syndrome [email or web address] Not available 12/22 11:21:36 Father Depressive disorder [email or web address] Not available 12/22 11:21:36 Father Gastric ulcer [email or web address] Not available 12/22 11:21:36 Medical History Condition Response Headaches/migraines Y Depression Y Panic Attacks Y Gynecological History Statement/Question Response Date of Last Colonoscopy Frequency of Cycle (Q days) 31 Date of LMP 08/29/2024 Most Recent Bone Density Date of Last Pap Smear 01/18/2023 Duration of Flow (days) 4-5 Most Recent Mammogram Current Control Method Age at Menarche 10 Obstetrics History GPAL:G 4 P 1 0 2 1 Type Value Full Term 1 Induced 1 Spontaneous 1 Living 1 Total 4 Past Encounters Encounter ID Performer Location Encounter Start Date Encounter Closed Date Diagnosis/Indication Diagnosis SNOMED-CT Code Diagnosis ICD10 Code Diagnosis IMO Codes Diagnosis Note [id number] Yamile Miles CNM [facility] [address] [place] [address] 12/23/2023 11:08:55 12/23/2023 13:36:03 Complete miscarriage 271498875 O03.9 766591 Pt was seen at [place] [facility] last week for complete miscarriag e. [...] and data review. Mental health problem 41 2208237 F48.9 134900 Prescripti on of contraception 395428333 Z30.015 09169336 COUNSELING was provided today regarding the following: - CHC use was discussed with the patient in detail including starting CHC risks, benefits, side effects, and ACHES. - Backup contracept ion x 2 weeks after start - Condoms should be used for STI prevention . - No absolute or relative contraindi cations to vaginal ring hormonal contracept caitlin use were identified Cystic acne 56853648 L70 .0 004 [id number] GAGANDEEP Maier [facility] [address] [place] [address] 10/17/2024 15:31:41 10/18/2024 16:41:31 Secondary amenorrhea 386704069 N91.1 Pt educated on U/S findings. Discussed recommenda tion for repeat U/S in 1-2 weeks. Pt advised on TAB precaution s and when to notify HCP/go to ER. Plan to continue with PNV daily. Rx refills sent. Further POC pending lab/imagin g results. Pt states understand ing of POC. Over 45 minutes spent in patient care and at least 50% of that time was in face to face counseling . Nausea and vomiting 3 1999 R11.2 5444921744 Pt educated on smaller/mo re frequent meals, pushing p.o. water intake, and avoiding spicy/frie d foods. Rx for Zofran and Reglan sent. Discussed use as mono therapy Vs combo therapy by rotating dosing of medication s every other med every 3 hours PRN for relief. Discussed low threshold to go to ER. Pt encouraged to notify HCP if no relief. Pt states understand ing of POC. Pain in pelvis 08323584 R10.2 89593 U/S findings reviewed with pt. Urine sent for cx and GCCT/Trich . Further POC pending lab result review. TAB precaution s reviewed and discussed when to notify HCP/go to ER. Pt states understand ing of POC. History of poor outcome [id number] 11768 Z87.59 94721229 Discussed importance of reviewing prior OB records from provider in [place] with delivery providers to discuss precaution s and delivery POC. Pt amenable. Pt signed records release. Further POC pending receipt of outside records. [id number] GAGANDEEP BRUNO [facility] [address] [place] [address] 10/31/2024 12:43:10 11/07/2024 11:15:30 Uncertain viability of 598530121 O36.80X0 28696554 - Routine antepartum care reviewed including visit schedule, ultrasound s, and labs. Care team reviewed. First trimester teaching provided. Reviewed Guide.-Pre vitamins daily-S/S of SAB reviewed and when to seek care Patient was counseled on purpose, process and potential outcomes of NIPT and carrier screening. We discussed benefits, limitation s and accuracy of screenings . Alternativ es including, no testing, were reviewed. Patient was given the opportunit y to ask questions, which were addressed thoroughly . After confirming understand ing, patient provided verbal consent for NIPT and carrier screening. Plan for NIPT at next visit. --BMI: 24.4Gestat ional weight gain during reviewed RTC 4 weeks for 1st OBV [id number] GAGANDEEP BRUNO [facility] [address] [place] [address] 11/28/2024 10:34:00 11/29/2024 09:57:24 screening 346488875 Z36.89 Gestation period, 12 weeks 35442918 Z3A.12 5448570 care status 24 3264914 Z34.82 62953039 -- NOB labs done today-- Accepts NIPT-- PAP Up to Date-- Pre-Pregna ncy BMI: 24.4- OB/ER warnings reviewed. RTC in 4 weeks Depression screening 171 787939 Z13.31 75484 [id number] GAGANDEEP BRUNO [facility] [address] [place] [address] 12/29/2024 10:27:47 12/29/2024 12:01:30 Gestation period, 17 weeks 74559710 Z3A.17 5075813 Screening for disorder 866379631 Z36.0 care status 24 9043809 Z34.82 51216762 Round ligament pain, discussed comfort measures NIPT and carrier screen Neg, pt sister with Spina Bifida- MSAFP todaySAB precaution s reviewedRT C in 3 weeks, plan for anatomy scan at next visit [id number] GAGANDEEP BRUNO [facility] [address] [place] [address] 01/19/2025 11:01:17 01/19/2025 12:20:52 Gestation period, 20 weeks 82190738 Z3A.20 3910213 screening for malformation 216897067 Z36.3 screening 2437 [address] Z36.86 care status 24 2626933 Z34.82 70530623 Small for gestational age fetus 860744150 O36.5920 24734984 EFW 7.5% 275g, AC 12.3%- discussed SGATORCH panel today and MFM referral sent Pruritus of 23 5532650 O99.712 L29.9 36114012 Health Concerns Section Related Observation LastModified by Organization Detai ls LastModified Time None Recorded Concern Status LastModified by Organization Details LastModified Time None Recorded Advance Directives Directive None Recorded Payers Insurance Date Sequence Insurance Name Policy Number Policy Ang Covered Member ID Ang Member ID Guarantor Name 10/17/2024 1 [place]: [facility] Yamilet Chacon [id number] Ymailet Chacon 02/16/2025 1 [facility] (MEDICAID HMO) [id number] Yamilet Chacon [id number] Yamilet Chacon Notes Date Note Type Note Provider Name and Address Organization Details Recorded Time 10/17/2024 text/html ROS as noted in the HPI Pt, partner, and son present for OB confirmation visit. Pt's LMP: 08/29/2024. Last Pap: 01/18/2023. Pt has started taking vitamins daily. Pt denies any bleeding, but does c/o cramping and moderate nausea/vomiting, and headache. Pt states she had a previous high risk in [place] and during her IOL had a placental abruption. Pt would prefer to avoid IOL during this . Pt states Zofran helped relieve sx with her last and would like a Rx refill. Pt has phenergan at home, but unable to take because it makes her too drowsy and has a toddler. Pt has no other concerns at this time. GAGANDEEP Maier [address] [facility], [place], [address], [facility] [employer] 10/18/2024 11:04:17 10/31/2024 text/html Yamilet today for a confirmation of visit. has not been previously confirmed at another healthcare facility. Pt voiced that she is happy about this . TVUS today showed:IUP with Cardiac Activity.consistent with LMP. ABHINAV: 06/07/25Gestational Age: 8w 5dFHT: 162 OB History: - IUGR 38 weeksMedical records recieved fromPlacental abruption during laborFOB sister has Spina BifidaSeen in ER yesterday for vomiting, states has improved after getting iv fluids and Zofran GAGANDEEP BRUNO [facility] [place], [address], [facility] 11/06/2024 22:00:36 11/28/2024 text/html ROS as noted in the HPI Yamilet is [age] y/o who presents for an initial visit at 12.5 weeks gestation. DIRECTOR MEDICAL WRITING History:Last pap: 01/18/23, NILM per pt 02/02/23 - IUGR was induced at 38 weeks-Placental abruption during labor-FOB sister has Spina Bifida -- Medications: Taking daily PNV, Amoxicillin, Zofran, Reglan, Triamcinolone ointment - - Pre- BMI: 24.4 She denies any complaints of the presence of vaginal bleed, leaking fluid, abdominal cramps, nausea, vomiting, headache or visual disturbances. GAGANDEEP BRUNO [address] [place], [address], [facility] 11/28/2024 17:53:30 12/29/2024 text/html ROS as noted in the HPI Patient is here today for a routine OB visit. She is currently at 17.1 weeks gestation. vitamins: yes She has not felt movement.Pt state she has been having alot of soreness says she didnt feel this much in first . Its in the lower abdominal area. She denies any complaints of the presence of vaginal bleed, leaking fluid, abdominal cramps, nausea, vomiting, headache or visual disturbances. GAGANDEEP BRUNO [address] [place], [address], [facility] [employer] 12/29/2024 11:57:47 01/19/2025 text/html ROS as noted in the HPI Patient is here today for a routine OB visit. She is currently at 20.1 weeks gestation. vitamins: yes She has felt movement.She denies any complaints of the presence of vaginal bleed, leaking fluid, abdominal cramps, nausea, vomiting, headache or visual disturbances. GAGANDEEP BRUNO [address] [facility], [place], [address], [facility] [employer] 01/19/2025 12:20:25 OBGyn Episode Ob Episode Information Episode Created Date Number of Fetuses Patient Bloodtype Patient rh Status Prepregnancy Weight lbs Domestic Partner Domestic Partner Phone Father Name Sole Stitcher Hand Status 12/23/19 24 1 CLOSED Fetus Data First Name Last Name Admitted to NICU Weight (g) Sex Living Outcome Pediatric Complications Fetus ID Race Codes Race Delivery Type 3061.74 6 M Full Term [id number] Abhinav Calculation Initial Abhinav Date Initial Exam Date Initial Exam Provider Initial Ultrasound Date Last Menstrual Period Date Ultra Sound Weeks Gestation 0 Eighteen To Twenty Week Abhinav Update Ultra Sound Date Fundal Height At Umbil Quickening Date Ultra Sound Latest Weeks Gestation Final Abhinav Confirmed By Final Abhinav Confirmed Date Final Abhinav Date Ultra Sound Latest Days Gestation 0 [...] Method Maternal HG B and HCT Levels Ob Episode Information Episode Created Date Number of Fetuses Patient Bloodtype Patient rh Status Prepregnancy Weight lbs Domestic Partner Domestic Partner Phone Father Name Sole Stitcher Hand Status 11/01/19 25 1 DELETED Fetus Data First Name Last Name Admitted to NICU Weight (g) Sex Living Outcome Pediatric Complications Fetus ID Race Codes Race Delivery Type [id number] Abhinav Calculation Initial Abhinav Date Initial Exam Date Initial Exam Provider Initial Ultrasound Date Last Menstrual Period Date Ultra Sound Weeks Gestation 10/31/2024 0 Eighteen To Twenty Week Abhinav Update Ultra Sound Date Fundal Height At Umbil Quickening Date Ultra Sound Latest Weeks Gestation Final Abhinav Confirmed By Final Abhinav Confirmed Date Final Abhinav Date Ultra Sound Latest Days Gestation 0 0 Menstrual History Last Menstrual Date Menses Monthly On Bcp Conception Prior Menses Frequency Hcg Plus Date Menarche Onset Age Delivery Information Delivery Date Delivery Type Labor Anesthesia Weeks Gestation Incision Type Labor Labor Length Hrs Delivered By Post Complications Tubal Sterilization Discharge Date Comments Discharge Information Feeding Method Contraceptive Method Maternal HG B and HCT Levels Ob Episode Information Episode Created Date Number of Fetuses Patient Bloodtype Patient rh Status Prepregnancy Weight lbs Domestic Partner Domestic Partner Phone Father Name Sole Stitcher Hand Status 11/26/19 25 1 A Positive OPEN Fetus Data First Name Last Name Admitted to NICU Weight (g) Sex Living Outcome Pediatric Complications Fetus ID Race Codes Race Delivery Type [id number] Problems Problem Notes Problem Name Start Date End Date Resolution Snomed Code Not e Family history of Spina bifida 11/28/2024 [id number] FOB sister with Spina Bifida-MSAFP Neg Past history of placental abruption 11/28/2024 [id number] Placental abrup tion during labor Abhinav Calculation Initial Abhinav Date Initial Exam Date Initial Exam Provider Initial Ultrasound Date Last Menstrual Period Date Ultra Sound Weeks Gestation 11/25/2024 0 Eighteen To Twenty Week Abhinav Update Ultra Sound Date Fundal Height At Umbil Quickening Date Ultra Sound Latest Weeks Gestation Final Abhinav Confirmed By Final Abhinav Confirmed Date Final Abhinav Date Ultra Sound Latest Days Gestation 0 06/08/19 26 0 Pre- Flowsheet Flowsheet Date 11/28/2024 Robbins Score Blood Edema Fundus Height Fundus Units Glucose Ketones Leukocytes Nitrite Labor Signs Protein Cervic Dilation Cervic Effacement Cervic Station none none none neg Type Weight in lbs Pre/Post Dialysis Refused With clothes [id number] BP Diastolic BP Location Tested BP Systolic BP Type 60 110 sitting Fetus Heart Rate Present A 168 Fetus Movement A No Comments -No OB complaints, EPDS 7, G AD 6-NOB, NIPT today-Recommend Pepcid for acid reflux, stop Reglan-right ankle insect bite- went to urgent care and was prescribed topical cream and amoxicillin, encouraged to take with food and monitor for worsening infeciton symptoms- ER precautions reviewed-RTC 4 weeks, plan for MSAFP at next visit. Flowsheet Date 12/29/2024 Robbins Score Blood Edema Fundus Height Fundus Units Glucose Ketones Leukocytes Nitrite Labor Signs Protein Cervic Dilation Cervic Effacement Cervic Station none neg Type Weight in lbs Pre/Post Dialysis Refused With clothes [id number] BP Diastolic BP Location Tested BP Systolic BP Type 60 110 sitting Fetus Heart Rate Present A 153 Fetus Movement A No Comments Round ligament pain, discuss ed comfort measuresNIPT and carrier screen Neg, pt sister with Spina Bifida- MSAFP todaySAB precautions reviewedRTC in 3 weeks, plan for anatomy scan at next visit Flowsheet Date 01/19/2025 Robbins Score Blood Edema Fundus Height Fundus Units Glucose Ketones Leukocytes Nitrite Labor Signs Protein Cervic Dilation Cervic Effacement Cervic Station none none none trace Type Weight in lbs Pre/Post Dialysis Refused With clothes [id number] BP Diastolic BP Location Tested BP Systolic BP Type 60 100 sitting Fetus Heart Rate Present A 146 Fetus Movement A No Comments Anatomy completeEFW 7.5% 275 g, AC 12.3%- discussed SGA TORCH panel today and MFM referral sentrash under left arm went to see PCP had topical cream and it helpeditching- bile acids and CMP todayPTL precautions reviewedRTC in 4 weeks Menstrual History Last Menstrual Date Menses Monthly On Bcp Conception Prior Menses Frequency Hcg Plus Date Menarche Onset Age Delivery Information Delivery Date Delivery Type Labor Anesthesia Weeks Gestation Incision Type Labor Labor Length Hrs Delivered By Post Complications Tubal Sterilization Discharge Date Comments Discharge Information Feeding Method Contraceptive Method Maternal HG B and HCT Levels
--- OUTSIDE RECORDS SUMMARY | 2025-02-16 11:22 | XMS_ITS | Patient Health Record ---
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
--- OUTSIDE RECORDS SUMMARY | 2025-02-16 11:22 | XMS_ITS | Patient Health Record ---
Author Organization [facility] Address [address] [place] [address] Support Name Relationship Address Phone Yamilet Chacon Guarantor Unknown [phone] Reason For Referral No Information Plan Of Treatment No Information Insurance Providers Payer Name Payer Address Payer Phone Subscriber Number Group Number Insured Name Patient Relationship to Insured Coverage Start Date Coverage End Date [employer] [address] [address] [place], [place] [id number] Yamilet Chacon Self - patient is the insured
== END 2025-02-16 10:24 | disposition home or self-care (01) ==
LOC: ANHFOHIMG 10:25
PROVIDERS: Visit Provider Registered Nurse School
DX: R59.0 Localized enlarged lymph nodes (principal)
CPT/HCPCS: 76882